=== PATIENT | female | born 1930 | race African-American/Black ===

== ENCOUNTER 2018-12-20 08:50 | Inpatient (IN) ==
--- NOTE | 2018-12-20 09:10 | ED ---
HPI General Chief complaint: Stroke Alert Stated complaint: Stroke Alert Time Seen by Provider: 12/20/18 09:02 History of Present Illness HPI Narrative: This is an 88-year-old female brought in emergently under a stroke alert. She is a skilled nursing patient with dementia who is bedbound but usually alert and conversant according to paramedics. They tell me that she was last seen normal yesterday evening before bed. They report that staff from the skilled nursing came in at 8 AM to check on her and found her very altered. Patient cannot provide any history or review of systems. This is due to significant altered mental status. At this time she is nonverbal. Exact symptom onset time is unclear as it occurred during the night. Related Data Home Medications Medication Instructions Recorded Confirmed amlodipine 5 mg PO DAILY 12/20/18 12/20/18 atorvastatin [Lipitor] 10 mg PO HS 12/20/18 12/20/18 atropine [Isopto Atropine] 1 drp LEFT EYE DAILY 12/20/18 12/20/18 carvedilol [Coreg] 6.25 mg PO BID 12/20/18 12/20/18 cilostazol 100 mg PO BID 12/20/18 12/20/18 docusate sodium [Colace] 100 mg PO BID 12/20/18 12/20/18 dorzolamide 1 drp RIGHT EYE BID 12/20/18 12/20/18 ergocalciferol (vitamin D2) 50,000 unit PO QWEEK 12/20/18 12/20/18 [Vitamin D2] furosemide [Lasix] 20 mg PO DAILY 12/20/18 12/20/18 gabapentin 200 mg PO TID 12/20/18 12/20/18 memantine [Namenda] 5 mg PO DAILY 12/20/18 12/20/18 tramadol 50 mg PO Q12HR PRN 12/20/18 12/20/18 tramadol 50 mg PO Q6H PRN 12/20/18 12/20/18 Allergies Allergy/AdvReac Type Severity Reaction Status Date / Time codeine Allergy Agitation Verified 12/20/18 09:23 Penicillins Allergy Agitation Verified 12/20/18 09:23 Review of Systems ROS Unobtainable ROS Unobtainable: unobtainable due to mental status PMFSH Medical History Medical History Degenerative disk disease (Acute) Glaucoma (Acute) HTN (hypertension) (Acute) Hyperlipemia (Acute) Hyperlipemia (Acute) Social History Social History Substance History: No History of Abuse Second Hand Smoke Exposure: No Smoking Status: Former smoker Tobacco Type: Cigarettes How Often Do You Have a Drink Containing Alcohol: Never Recent Travel in [facility] [place] within the Last 8 Weeks: No Recent Out of Country Travel within the Last 8 Weeks: No Exam Narrative Exam Narrative: GENERAL: Well-nourished, well-developed patient who is very altered . SKIN: Focused skin assessment reveals no rash and nodules. Skin is Warm and dry. HEAD: Atraumatic. Normocephalic. EYES: Pupil on the is round and midsized. 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 No scleral icterus. No injection or drainage. ENT: No nasal bleeding or discharge. Mucous membranes pink and moist. Normal gag reflex NECK: Trachea midline. No JVD. CARDIOVASCULAR: Regular rate and rhythm. No murmur appreciated. RESPIRATORY: No accessory muscle use. Clear to auscultation. Breath sounds equal bilaterally. GASTROINTESTINAL: Abdomen soft, non-tender, nondistended. Hepatic and splenic margins not palpable. MUSCULOSKELETAL: No obvious deformities. No clubbing. No cyanosis. No edema. NEUROLOGICAL: Very obtunded. Does not follow commands. Nonverbal. Normal gag reflex. She has right-sided facial droop. It seems like her right arm is flaccid. If I pick it up it just flops down to the bed. Her left arm she will keep up. She will squeeze my fingers with her left hand. She will withdrawal both legs when I give a painful stimuli. PSYCHIATRIC: Very altered mood and affect; insight and judgment poor. Course Initial Documented Vital Signs Temperature 98.5 F 12/20/18 08:52 Pulse Rate 77 12/20/18 08:52 Respiratory Rate 18 12/20/18 08:52 Blood Pressure 167/93 H 12/20/18 08:52 Pulse Oximetry 100 12/20/18 08:52 Last Documented Vital Signs Temperature 98.5 F 12/20/18 08:52 Pulse Rate 77 12/20/18 08:52 Respiratory Rate 18 12/20/18 08:52 Blood Pressure 167/93 H 12/20/18 08:52 Pulse Oximetry 100 12/20/18 09:27 Critical Care Time Critical Care Time: Yes Total Critical Care Time: 40 Attestation: Aggregate critical care time was 40 minutes. Time to perform other separately billable procedures was not included in the critical care time. My time did not include minutes spent treating any other patients simultaneously or on activities that did not directly contribute to the patient's treatment. The services I provided to this patient were to treat and/or prevent clinically significant deterioration that could result in: Cardiopulmonary arrest, loss of airway, permanent neurologic deficit I provided critical care services requiring my management, as noted below: Chart data review, documentation time, medication orders and management, vital sign assessments/reviewing monitor data, ordering and reviewing lab tests, ordering and interpreting/reviewing x-rays and diagnostic studies, care of the patient and discussion of the patient with the admitting physicians. Medical Decision Making MDM Narrative Medical decision making narrative: 88-year-old female brought in a stroke alert. She is very altered and appears to have right-sided facial droop and flaccid right arm. She was very hypertensive but that is come down spontaneously to the 160s. She is emergently going to CT scanner. I emergently discussed the case with neurologist Dr. Shimon Garcia. Scan shows acute to subacute left-sided stroke with some pinpoint hemorrhages. There is no indication for interventional radiology. Patient will require admission. Her mental status is very poor. Given the pinpoint hemorrhages which are nonsurgical, no further blood thinners/ antiplatelet agents given. Blood pressure spiked to 225 systolic and I gave 20 mg IV labetalol. This will be watched closely. I discussed with the computer repair technician but given the DNR status and likely trending toward comfort care he recommends residents admit. I did review with the medical residents who will admit. They are going to consult palliative care. Labs are reviewed. Medical Screen Exam Complete: Yes Emergency Medical Condition: Yes Differential Diagnosis Differential Diagnosis: Hemorrhagic stroke, ischemic stroke, TIA Medical Records Medical records reviewed: Yes I reviewed the patient's medical records. Reviewed her medical information from the skilled nursing. It appears that she is DNR. She is on antiplatelet agent Lab Data Lab results reviewed: Yes I reviewed the patient's lab results. Lab results narrative: White count is 11 and hemoglobin normal Result diagrams: 12/20/18 08:55 Lab Results 12/20/18 12/20/18 12/20/18 Range/Units 08:55 08:55 08:55 WBC 11.1 H (4.0-11.0) th/mm3 RBC 4.36 (4.00-5.30) mil/mm3 Hgb 12.6 (11.6-15.3) gm/dL POC Hgb (Calc) 13.9 (11.6-15.3) g/dL Hct 38.8 (35.0-46.0) % POC Hct 41.0 (35-46.0) % MCV 88.9 (80.0-100.0) fL MCH 29.0 (27.0-34.0) pg MCHC 32.6 (32.0-36.0) % RDW 15.1 (11.6-17.2) % Plt Count 213 (150-450) th/mm3 MPV 9.5 (7.0-11.0) fL Neut % (Auto) 80.7 H (16.0-70.0) % Lymph % (Auto) 14.5 (9.0-44.0) % Dent % (Auto) 4.2 (0.0-8.0) % Eos % (Auto) 0.0 (0.0-4.0) % Baso % (Auto) 0.6 (0.0-2.0) % Neut # (Auto) 9.0 H (1.8-7.7) th/mm3 Lymph # (Auto) 1.6 (1.0-4.8) th/mm3 Dent # (Auto) 0.5 (0.0-0.9) th/mm3 Eos # (Auto) 0.0 (0.0-0.4) th/mm3 Baso # (Auto) 0.1 (0.0-0.2) th/mm3 WBC Differential . Differential Comment Auto diff final PT (9.8-11.6) sec INR Ratio APTT (23.4-31.7) sec Fibrinogen (227-377) mg/dL POC Sodium 141 (137-144) mmol/L POC Potassium 4.5 (3.6-5.0) mmol/L POC Chloride 103 (102-111) mmol/L POC BUN 23 H (5-21) mg/dL POC Creatinine 1.1 (0.6-1.3) mg/dL POC Glucose 142 H (68-110) mg/dL Total Creatine Kinase 274 H (26-192) U/L CK-MB (CK-2) 3.5 (0.5-3.6) ng/mL CK-MB (CK-2) % 1.3 (0.0-4.0) % Troponin I 0.03 (0.02-0.05) ng/mL Vitamin B12 (193-986) pg/mL TSH (0.358-3.740) uIU/mL Urine Color (Yellw/Straw) Urine Clarity (Clear) Urine pH (5.0-8.5) Ur Specific [place] (1.002-1.035) Urine Protein (Neg-Trace) mg/dL Urine Glucose (UA) (Negative) mg/dL Urine Ketones (Negative) mg/dL Urine Occult Blood (Negative) Urine Nitrate (Negative) Urine Bilirubin (Negative) Urine Urobilinogen (Less than 2) mg/dL Ur Leukocyte Esterase (Negative) Urine RBC (0-3) /hpf Urine WBC (0-5) /hpf Ur Squamous Epith Cells (0-5) /hpf Urine Bacteria (None) /hpf Urine Mucus (Occasional) /lpf Micro UA Comment Ur Microscopic Review Urine Culture Comments Urine Opiates Screen (Neg) Ur Barbiturates Screen (Neg) Ur Amphetamines Screen (Neg) U Benzodiazepines Scrn (Neg) Urine Cocaine Screen (Neg) U Cannabinoids Screen (Neg) Blood Type O Positive Antibody Screen Negative 12/20/18 12/20/18 12/20/18 Range/Units 08:55 09:48 09:48 WBC (4.0-11.0) th/mm3 RBC (4.00-5.30) mil/mm3 Hgb (11.6-15.3) gm/dL POC Hgb (Calc) (11.6-15.3) g/dL Hct (35.0-46.0) % POC Hct (35-46.0) % MCV (80.0-100.0) fL MCH (27.0-34.0) pg MCHC (32.0-36.0) % RDW (11.6-17.2) % Plt Count (150-450) th/mm3 MPV (7.0-11.0) fL Neut % (Auto) (16.0-70.0) % Lymph % (Auto) (9.0-44.0) % Dent % (Auto) (0.0-8.0) % Eos % (Auto) (0.0-4.0) % Baso % (Auto) (0.0-2.0) % Neut # (Auto) (1.8-7.7) th/mm3 Lymph # (Auto) (1.0-4.8) th/mm3 Dent # (Auto) (0.0-0.9) th/mm3 Eos # (Auto) (0.0-0.4) th/mm3 Baso # (Auto) (0.0-0.2) th/mm3 WBC Differential Differential Comment PT 10.6 (9.8-11.6) sec INR 1.0 Ratio APTT 25.7 (23.4-31.7) sec Fibrinogen 303 (227-377) mg/dL POC Sodium (137-144) mmol/L POC Potassium (3.6-5.0) mmol/L POC Chloride (102-111) mmol/L POC BUN (5-21) mg/dL POC Creatinine (0.6-1.3) mg/dL POC Glucose (68-110) mg/dL Total Creatine Kinase (26-192) U/L CK-MB (CK-2) (0.5-3.6) ng/mL CK-MB (CK-2) % (0.0-4.0) % Troponin I (0.02-0.05) ng/mL Vitamin B12 392 (193-986) pg/mL TSH 0.943 (0.358-3.740) uIU/mL Urine Color (Yellw/Straw) Urine Clarity (Clear) Urine pH (5.0-8.5) Ur Specific [place] (1.002-1.035) Urine Protein (Neg-Trace) mg/dL Urine Glucose (UA) (Negative) mg/dL Urine Ketones (Negative) mg/dL Urine Occult Blood (Negative) Urine Nitrate (Negative) Urine Bilirubin (Negative) Urine Urobilinogen (Less than 2) mg/dL Ur Leukocyte Esterase (Negative) Urine RBC (0-3) /hpf Urine WBC (0-5) /hpf Ur Squamous Epith Cells (0-5) /hpf Urine Bacteria (None) /hpf Urine Mucus (Occasional) /lpf Micro UA Comment Ur Microscopic Review Urine Culture Comments Urine Opiates Screen Neg (Neg) Ur Barbiturates Screen Neg (Neg) Ur Amphetamines Screen Neg (Neg) U Benzodiazepines Scrn Neg (Neg) Urine Cocaine Screen Neg (Neg) U Cannabinoids Screen Neg (Neg) Blood Type Antibody Screen 12/20/18 Range/Units 09:48 WBC (4.0-11.0) th/mm3 RBC (4.00-5.30) mil/mm3 Hgb (11.6-15.3) gm/dL POC Hgb (Calc) (11.6-15.3) g/dL Hct (35.0-46.0) % POC Hct (35-46.0) % MCV (80.0-100.0) fL MCH (27.0-34.0) pg MCHC (32.0-36.0) % RDW (11.6-17.2) % Plt Count (150-450) th/mm3 MPV (7.0-11.0) fL Neut % (Auto) (16.0-70.0) % Lymph % (Auto) (9.0-44.0) % Dent % (Auto) (0.0-8.0) % Eos % (Auto) (0.0-4.0) % Baso % (Auto) (0.0-2.0) % Neut # (Auto) (1.8-7.7) th/mm3 Lymph # (Auto) (1.0-4.8) th/mm3 Dent # (Auto) (0.0-0.9) th/mm3 Eos # (Auto) (0.0-0.4) th/mm3 Baso # (Auto) (0.0-0.2) th/mm3 WBC Differential Differential Comment PT (9.8-11.6) sec INR Ratio APTT (23.4-31.7) sec Fibrinogen (227-377) mg/dL POC Sodium (137-144) mmol/L POC Potassium (3.6-5.0) mmol/L POC Chloride (102-111) mmol/L POC BUN (5-21) mg/dL POC Creatinine (0.6-1.3) mg/dL POC Glucose (68-110) mg/dL Total Creatine Kinase (26-192) U/L CK-MB (CK-2) (0.5-3.6) ng/mL CK-MB (CK-2) % (0.0-4.0) % Troponin I (0.02-0.05) ng/mL Vitamin B12 (193-986) pg/mL TSH (0.358-3.740) uIU/mL Urine Color Straw (Yellw/Straw) Urine Clarity Hazy H (Clear) Urine pH 8.0 (5.0-8.5) Ur Specific [place] 1.010 (1.002-1.035) Urine Protein 100 H (Neg-Trace) mg/dL Urine Glucose (UA) Negative (Negative) mg/dL Urine Ketones Negative (Negative) mg/dL Urine Occult Blood Moderate H (Negative) Urine Nitrate Negative (Negative) Urine Bilirubin Negative (Negative) Urine Urobilinogen Less than 2 (Less than 2) mg/dL Ur Leukocyte Esterase Negative (Negative) Urine RBC 10 H (0-3) /hpf Urine WBC 3 (0-5) /hpf Ur Squamous Epith Cells 5 (0-5) /hpf Urine Bacteria Rare H (None) /hpf Urine Mucus Few H (Occasional) /lpf Micro UA Comment Cath-culture not ind Ur Microscopic Review Not Reportable Urine Culture Comments Cath-cult not ind Urine Opiates Screen (Neg) Ur Barbiturates Screen (Neg) Ur Amphetamines Screen (Neg) U Benzodiazepines Scrn (Neg) Urine Cocaine Screen (Neg) U Cannabinoids Screen (Neg) Blood Type Antibody Screen Imaging Data Attestation: I personally reviewed and interpreted this imaging study as follows : My impression: CT shows acute subacute infarct with pinpoint hemorrhages Radiologist's impression: Head CT 12/20/18 09:01 CONCLUSION: Acute to subacute area of infarction involving the left middle cerebral artery territory with suspected small punctate areas of hemorrhage. Report was called by Dr. Hsieh to at 9:20 AM.. ECG Data EKG Prior to Arrival: No Attestation: I personally reviewed and interpreted this ECG as follows: Prior ECG tracings: not available for review Discharge Plan Discharge Disposition Patient Disposition: ED Admit(ED Internal Use Only) Discharge Details Diagnosis: Acute ischemic stroke Physicians Team ED Provider: Will Wells Primary Care Provider: UNKNOWN, Other Providers: Shimon Garcia Rxs /Orders / Referrals /Forms Prescriptions: No Action amlodipine 5 mg Tablet 5 mg PO DAILY RF: 0 cilostazol 100 mg Tablet 100 mg PO BID RF: 0 carvedilol [Coreg] 6.25 mg Tablet 6.25 mg PO BID RF: 0 atorvastatin [Lipitor] 10 mg Tablet 10 mg PO HS RF: 0 tramadol 50 mg Tablet 50 mg PO Q6H PRN (Reason: Pain, Severe) RF: 0 tramadol 50 mg Tablet 50 mg PO Q12HR PRN (Reason: Pain, Mild) RF: 0 docusate sodium [Colace] 100 mg Capsule 100 mg PO BID RF: 0 furosemide [Lasix] 20 mg Tablet 20 mg PO DAILY RF: 0 gabapentin 100 mg Capsule 200 mg PO TID RF: 0 ergocalciferol (vitamin D2) [Vitamin D2] 50,000 unit Capsule 50,000 unit PO QWEEK RF: 0 atropine [Isopto Atropine] 1 % Drops 1 drp LEFT EYE DAILY RF: 0 dorzolamide 2 % Drops 1 drp RIGHT EYE BID RF: 0 memantine [Namenda] 5 mg Tablet 5 mg PO DAILY RF: 0 Status ED Status: With Doctor
[2018-12-20 09:21] LABS: Baso # (Auto) 0.1 th/mm3 (0.0-0.2); Baso % (Auto) 0.6 % (0.0-2.0); Hematocrit 38.8 % (35.0-46.0); Hemoglobin 12.6 gm/dL (11.6-15.3); Lymph # (Auto) 1.6 th/mm3 (1.0-4.8); Lymph % (Auto) 14.5 % (9.0-44.0); Mean Corpuscular HGB Conc 32.6 % (32.0-36.0); Mean Corpuscular Volume 88.9 fL (80.0-100.0); Mean Platelet Volume 9.5 fL (7.0-11.0); Mono # (Auto) 0.5 th/mm3 (0.0-0.9); Mono % (Auto) 4.2 % (0.0-8.0); Neut % (Auto) 80.7 % (16.0-70.0); Platelet Count 213 th/mm3 (150-450); Red Blood Count 4.36 mil/mm3 (4.00-5.30); Red Cell Distribution Width 15.1 % (11.6-17.2); White Blood Count 11.1 th/mm3 (4.0-11.0)
--- NOTE | 2018-12-20 09:24 | CT ---
EXAM DATE: 12/20/2018 9:15 AM EST AGE/SEX: 88 years / Female INDICATIONS: Stroke alert, right sided facial droop and right extremity weakness CLINICAL DATA: This is the patient's initial encounter. Patient reports that signs and symptoms have been present for 1 day and indicates a pain score of Nonresponsive. MEDICAL/SURGICAL HISTORY: Non-responsive. Non-responsive. RADIATION DOSE: 66.34 CTDI (mGy) COMPARISON: No prior exams available for comparison. TECHNIQUE: CT of the head without contrast. Using automated exposure control and adjustment of the mA and/or kV according to patient size, radiation dose was kept as low as reasonably achievable to ob tain optimal diagnostic quality images. DICOM format image data is available electronically for revi ew and comparison. FINDINGS: Cerebrum: There is low density seen in the left frontal and parietal lobes. There is low density in the left basal ganglia. This is likely from acute to subacute infarction in the left MCA territory. T here are several small high density foci seen related to either underlying calcifications are tiny ar eas of hemorrhage. A large branden hemorrhage is not seen. There is effacement of the sulci in the left cerebral hemisphere. Significant midline shift is not seen at this time. The basal cisterns are open . There is low density in the cerebral white matter likely from pre-existing small ischemic change i n the white matter. Posterior Fossa: The cerebellum and brainstem are intact. The 4th ventricle is midline. The cerebe llopontine angle is unremarkable. Extracranial: The visualized portion of the orbits is intact. There is a deformity and surgical mate rial seen at the left globe. Skull: The calvaria is intact. No evidence of skull fracture. CONCLUSION: Acute to subacute area of infarction involving the left middle cerebral artery territory with suspect ed small punctate areas of hemorrhage. Report was called by Dr. Hsieh to at 9:20 AM.. Electronically signed by: Daniele Hsieh MD Board Certified Radiologist 12/20/2018 9:23 AM EST
[2018-12-20 09:44] LABS: Troponin I 0.03 ng/mL (0.02-0.05)
[2018-12-20] MEDS: Aspirin 300 MG Supp RECTAL SCH (09:51)
[2018-12-20] MEDS: Sod Chloride 0.9% Inj 1,000 ML IV.CONT SCH (09:52)
[2018-12-20 09:56] LABS: CKMB Percent 1.3 % (0.0-4.0); Creatine Kinase MB 3.5 ng/mL (0.5-3.6)
--- NOTE | 2018-12-20 10:03 | MB ---
cc: Shimon Garcia MD DATE: 12/20/2018 HISTORY OF PRESENT ILLNESS: An 88-year-old woman who has not been seen really at this hospital before, who comes in with Stroke alert. She is noted to be usually demented and bedbound, but this morning noted to be weak on the right side. Last seen last evening about 5 p.m. when she went to bed. Status post stroke alert was called within 24 hours. Unfortunately, review of systems, family history, social history, unable to obtain any of that information. PHYSICAL EXAMINATION: VITAL SIGNS: On exam, 173/106 sinus rhythm on tele. NECK: There are no carotid bruits. HEART: Regular rhythm. I did not detect a murmur. 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 Right eye is deviated over to the left. She is not following any commands. It sounds like she is probably aphasic. She is flaccid on the right upper and lower extremity. Left upper extremity, she can hold above the bed. left lower extremity, she did move a little bit at the knee. Toes were equivocal bilaterally. Hard to tell for pinprick. NIH stroke scale is 15. Labs are pending. MEDICATIONS: She is on Lasix, some eyedrops, memantine 5 mg once a day, carvedilol, amlodipine, atorvastatin, cilostazol, Colace, gabapentin 200 t.i.d., tramadol. PAST MEDICAL HISTORY: From the halfway, hypertension, glaucoma, hypercholesterolemia, neuropathy, constipation, dementia, osteoarthritis, cervical disk disorder, repeated falls, vitamin D deficiency. It says she was on antiplatelet drug, although I do not see one on here. DIAGNOSTIC DATA: On 12/07/2018, she had a normal CBC. Vitamin D was low at 9.2. PTH was 178. Basic metabolic profile, creatinine 1.43. LFTs were normal. GFR 35. TSH and phosphorus normal. Hemoglobin A1c 6.8. Diagnostic studies here, glucose 139. Creatinine 1.1. CT scan shows a large evolving left MCA infarct. IMPRESSION AND PLAN: Large stroke certainly over several hours old. Not going to be a TPA candidate or any clot extraction candidate. It is over 2/3 of the size of the middle cerebral artery territory. We will check an MRI and MRA on her; but at this point, considering her dementia, consideration for comfort measures may be entertained. We will have to see what the family would want. For now, just give her rectal aspirin. MD HENRI Washburn/haroldo , 09:18 AM , 09:36 AM
[2018-12-20 10:23] LABS: Bacteria,Urine Rare /hpf; Bilirubin,Urine Negative (Negative); Clarity,Urine Hazy (Clear); Color,Urine Straw (Yellw/Straw); Glucose,Urine (UA) Negative (Negative); Leukocyte Esterase,Urine Negative (Negative); Mucus,Urine Few /lpf (Occasional); Nitrite,Urine Negative (Negative); Squamous Epithelial Cell,Urine 5 /hpf (0-5)
[2018-12-20 10:25] LABS: Amphetamine Screen,Urine Neg (Neg); Barbiturate Screen,Urine Neg (Neg); Cannabinoid Screen,Urine Neg (Neg); Cocaine Screen,Urine Neg (Neg)
[2018-12-20 10:26] LABS: Opiate Screen,Urine Neg (Neg)
[2018-12-20 10:35] LABS: Activated Partial Thrombo Time 25.7 sec (23.4-31.7); Prothrombin Time 10.6 sec (9.8-11.6)
[2018-12-20 10:52] LABS: Thyroid Stimulating Hormone 0.943 uIU/mL (0.358-3.740)
[2018-12-20] MEDS ORDERED: Labetalol HCl Inj 100 MG/20 ML Vial IV.PUSH ONE (11:19)
[2018-12-20] MEDS ORDERED: Labetalol HCl Inj 20 MG/4 ML Vial IV.PUSH ONE (11:45)
--- NOTE | 2018-12-20 11:50 | P.HPFP ---
History of Present Illness Primary Care Physician: UNKNOWN <NubiaWayne K - 12/21/18 07:43> UNKNOWN <Natalie Dodson - 12/20/18 11:50> Chief Complaint: right sided weakness, altered mental status <Natalie Dodson - 12/20/18 11:50> History of Present Illness: 88-year-old with history of dementia, hypertension and hypercholesterolemia presents the ED for altered mental status and right-sided weakness that started this morning per nursing of staff. Patient is currently nonverbal, unresponsive to voice, withdraws from sternal rub and is unable to follow commands. History obtained from daughter who is at bedside. Patient's daughter states that she was last seen normal yesterday afternoon at lunch, where she was conversing normally and feeding herself. She normally walks with a walker. She has been groaning and will move her left side spontaneously, however, patient has not been verbal, or responded to her daughter's voice yet today. At baseline, patient is oriented to self. Denies any recent illnesses. Denies history of clots in the past, though patient is on a blood thinner currently, though patient's daughter is unsure the name of this medication. She does have a history of loop recorder placement for a heart murmur, however no arrhythmia has been found. Discussed possible treatment options with daughter, based on neurologists recommendations. Due to patient's current mental status and history of dementia , offered palliative care consult to discuss treatment options, care goals and code status for the patient. Per daughter, patient signed community DNR paperwork on 12/19, however, this has not yet been signed by a physician. Daughter is hesitant to confirm DNR status at this point in time stating that her mother "does not want any intervention that would cause prolonged, or terminal pain ". After reassurance that patient's CODE STATUS could be changed today time per her request, daughter states that she would like her mother to remain DNI, but is agreeable to chest compressions and ACLS medications if necessary. Daughter also states that she is unsure if she wants an extended workup, including blood work, if it will not change the medical management, and would like to wait for the MRI/MRA and talk to palliative care prior to further investigation of the cause of the stroke. Past medical history: Hypertension Dementia Glaucoma Hypercholesterolemia Chronic pain Constipation Surgical history: Knee replacement Loop recorder placement Social history: Resides in a residential Former smoker Daughter denies alcohol or illicit drug use. <Natalie Dodson 12/20/18 21:38> - Diagnosis (1) Stroke due to embolism of left middle cerebral artery (2) Altered mental status (3) Right sided weakness (4) HTN (hypertension) (5) Dementia (6) Nutrition, metabolism, and development symptoms (7) DVT prophylaxis <Wayne Delacruz 12/21/18 07:43> (1) Stroke due to embolism of left middle cerebral artery (2) Altered mental status (3) Right sided weakness (4) HTN (hypertension) (5) Dementia (6) Nutrition, metabolism, and development symptoms (7) DVT prophylaxis <Natalie Dodson 12/20/18 21:22> Inpatient Certification: I certify that the inpatient services were ordered in accordance with Medicare regulations governing the order. This includes certification that hospital inpatient services are reasonable and necessary and in the case of services not specified as inpatient-only under 42 CFR 419.22(n), that they are appropriately provided as inpatient services in accordance to with the 2-midnight benchmark under 43 CFR 412.3(e) <Wayne Delacruz 12/21/18 07:43> PMFSH - History History Provided By: Family Member <Natalie Dodson 12/20/18 21:38> - Medical / Surgical Hx Neg / Unobtainable Surgical History: Unable to Obtain <Natalie Dodson 12/20/18 21:38> - Medical History Medical History: Medical History (Last Reviewed 12/20/18 @ 13:56 by Amalia Snow Subscription Clerk, PHYSICIAN REPRESENTATIVE) Degenerative disk disease Glaucoma HTN (hypertension) Hyperlipemia Hyperlipemia <Wayne Delacruz 12/21/18 07:43> Medical History (Last Reviewed 12/20/18 @ 13:56 by Amalia Snow Subscription Clerk, PHYSICIAN REPRESENTATIVE) Degenerative disk disease Glaucoma HTN (hypertension) Hyperlipemia Hyperlipemia <Natalie Dodson 12/20/18 19:49> - Tobacco History Second Hand Smoke Exposure: No <Natalie Dodson 12/20/18 11:50> Tobacco Use In Past 30 Days: No <Natalie Dodson 12/20/18 11:50> Smoking Status: Former smoker <[place] [id number] 12/20/18 11:50> Tobacco Type: Cigarettes <[place] [id number] B 12/20/18 11:50> - Alcohol History How Often Do You Have a Drink Containing Alcohol: Never <Caitie Natalie Noel 12/20/18 11:50> - Substance Use History Substance History: No History of Abuse <[place] [id number] 12/20/18 11:50> - Travel History Recent Travel in the [facility] Within the Last 8 Weeks: No [facility] Recent Travel Out of the Country Within the Last 8 Weeks: No <[facility] 12/20/18 11:50> - Immunization History Tetanus Immunization: <5 Years <[place] [id number] 12/20/18 11:50> Medications and Allergies Allergies Allergy/AdvReac Type Severity Reaction Status Date / Time codeine Allergy Agitation Verified 12/20/18 09:23 Penicillins Allergy Agitation Verified 12/20/18 09:23 <Wayne Delacruz - 12/21/18 07:43> Home Medications Medication Instructions Recorded Confirmed Type amlodipine 5 mg PO DAILY 12/20/18 12/20/18 History atorvastatin [Lipitor] 10 mg PO HS 12/20/18 12/20/18 History atropine [Isopto Atropine] 1 drp LEFT EYE DAILY 12/20/18 12/20/18 History carvedilol [Coreg] 6.25 mg PO BID 12/20/18 12/20/18 History cilostazol 100 mg PO BID 12/20/18 12/20/18 History docusate sodium [Colace] 100 mg PO BID 12/20/18 12/20/18 History dorzolamide 1 drp RIGHT EYE BID 12/20/18 12/20/18 History ergocalciferol (vitamin D2) 50,000 unit PO QWEEK 12/20/18 12/20/18 History [Vitamin D2] furosemide [Lasix] 20 mg PO DAILY 12/20/18 12/20/18 History gabapentin 200 mg PO TID 12/20/18 12/20/18 History memantine [Namenda] 5 mg PO DAILY 12/20/18 12/20/18 History tramadol 50 mg PO Q12HR PRN 12/20/18 12/20/18 History tramadol 50 mg PO Q6H PRN 12/20/18 12/20/18 History <Wayne Delacruz - 12/21/18 07:43> Active Medications: Active Medications Acetaminophen (Tylenol) 650 mg PO Q4H PRN PRN Reason: Temp > 100.4 Aspirin (Aspirin Supp) 300 mg RECTAL DAILY [facility] Last Admin: 12/20/18 09:51 Dose: Not Given Sodium Chloride (Ns Inj) 1,000 mls @ 70 mls/hr IV.CONT .[id number] [facility] Last Admin: 12/21/18 03:06 Dose: 70 mls/hr Acetaminophen (Ofirmev Inj) 650 mg in 65 mls @ 400 mls/hr IV.SIG Q6H PRN PRN Reason: Fever > 100.4F Last Infusion: 12/20/18 18:24 Dose: Infused Ondansetron HCl (Zofran Inj) 4 mg IV.PUSH Q6H PRN PRN Reason: NAUSEA OR VOMITING Senna/Docusate Sodium (Janae-Colace) 1 tab PO BID PRN PRN Reason: CONSTIPATION Sodium Chloride (Ns Flush) 2 ml IV.FLUSH BID [facility] Last Admin: 12/20/18 20:24 Dose: Not Given Sodium Chloride (Ns Flush) 2 ml IV.FLUSH UNSCH PRN PRN Reason: FLUSH AFTER USING IV ACCESS <Wayne Delacruz - 12/21/18 07:43> Active Medications Aspirin (Aspirin Supp) 300 mg RECTAL DAILY [facility] Last Admin: 12/20/18 09:51 Dose: Not Given Sodium Chloride (Ns Inj) 1,000 mls @ 70 mls/hr IV.CONT .[id number] [facility] Last Admin: 12/20/18 09:52 Dose: 70 mls/hr <Natalie Dodson - 12/20/18 11:50> Exam Vital signs: Vital Signs 12/20/18 08:52 12/20/18 09:00 12/20/18 09:27 Temperature 98.5 F Pulse Rate 77 Respiratory Rate 18 Blood Pressure 167/93 H Pulse Oximetry 100 100 100 12/20/18 12:35 12/20/18 15:46 12/20/18 16:00 Temperature 101.7 F H 101.5 F H Pulse Rate 100 H 95 H Respiratory Rate 18 16 Blood Pressure 162/83 H 195/88 H Pulse Oximetry 99 12/20/18 18:46 12/20/18 19:50 12/20/18 20:00 Temperature 101.9 F H 101.7 F H Pulse Rate 88 Respiratory Rate 20 Blood Pressure 161/80 H Pulse Oximetry 100 99 12/20/18 23:28 12/21/18 00:00 12/21/18 04:00 Temperature 101.2 F H 100.8 F H Pulse Rate 76 66 Respiratory Rate 16 16 Blood Pressure 169/77 H 169/74 H Pulse Oximetry 99 99 12/21/18 04:55 Temperature 99.2 F Pulse Rate Respiratory Rate Blood Pressure Pulse Oximetry Intake & Output 12/20/18 12/21/18 12/21/18 18:59 06:59 18:59 Intake Total 465 / 465 665 / 665 Output Total 100 / 100 500 / 500 Balance 365 / 365 165 / 165 Weight 94.3 kg Intake: IV 465 / 465 665 / 665 NS Inj 1,000 ML @ 70 mls/hr IV. 400 / 400 600 / 600 CONT .[id number] [facility] Rx#:[id number] Ofirmev Inj 650 mg In 65 ml @ 65 / 65 65 / 65 400 mls/hr IV.SIG ONCE ONE Rx#: [id number] Output: Urine 500 / 500 Urine Amount (Catheter) 100 / 100 Female External 100 / 100 Other: # Voids 3 # Incontinent Voids 1 Weight On Admission 94.3 kg <Wayne Delacruz - 12/21/18 07:43> Vital Signs 12/20/18 08:52 12/20/18 09:00 12/20/18 09:27 Temperature 98.5 F Pulse Rate 77 Respiratory Rate 18 Blood Pressure 167/93 H Pulse Oximetry 100 100 100 Intake & Output 12/19/18 12/20/18 12/20/18 18:59 06:59 18:59 Weight 94.3 kg <Natalie Dodson - 12/20/18 11:50> Narrative: GENERAL: 88-year-old, well nourished, well developed female laying down in bed. In no acute distress. SKIN: Warm and dry. HEAD: Atraumatic. Normocephalic. EYES: EMOI. PERRLA. No scleral icterus. No injection or drainage. ENT: No nasal bleeding or discharge. Mucous membranes pink and moist. Airway patent. Poor dentition. CARDIOVASCULAR: Regular rate and rhythm. No murmur. RESPIRATORY: No accessory muscle use. Clear to auscultation with equal breath sounds. No crackles, wheeze, rales or rhonchi. GASTROINTESTINAL: Abdomen soft, non-tender, nondistended. Hepatic and splenic margins not palpable. MUSCULOSKELETAL: Extremities without clubbing, cyanosis, or edema. No obvious deformities. Unable to determine calf tenderness due to patient's mental status. Flaccid arm and leg on the right. NEUROLOGICAL: Unresponsive to voice. Mild withdrawal to sternal rub. Kept eyes closed throughout the entire exam. Intermittent groaning throughout exam. Unable to follow commands, including opening her eyes, or squeezing fingers. Moves left foot spontaneously. Facial droop on right. <Natalie Dodson - 12/20/18 19:54> Results - Labs Result diagrams: 12/20/18 08:55 <Wayne Delacruz - 12/21/18 07:43> Abnormal lab results 12/20/18 12/20/18 12/20/18 Range/Units 08:55 08:55 09:48 WBC 11.1 H (4.0-11.0) th/mm3 Neut % (Auto) 80.7 H (16.0-70.0) % Neut # (Auto) 9.0 H (1.8-7.7) th/mm3 POC BUN 23 H (5-21) mg/dL POC Glucose 142 H (68-110) mg/dL Total Creatine Kinase 274 H (26-192) U/L Urine Clarity Hazy H (Clear) Urine Protein 100 H (Neg-Trace) mg/dL Urine Occult Blood Moderate H (Negative) Urine RBC 10 H (0-3) /hpf Urine Bacteria Rare H (None) /hpf Urine Mucus Few H (Occasional) /lpf Short CBC 12/20/18 Range/Units 08:55 WBC 11.1 H (4.0-11.0) th/mm3 Hgb 12.6 (11.6-15.3) gm/dL Hct 38.8 (35.0-46.0) % Plt Count 213 (150-450) th/mm3 Cardiac Enzymes 12/20/18 Range/Units 08:55 Total Creatine Kinase 274 H (26-192) U/L CK-MB (CK-2) 3.5 (0.5-3.6) ng/mL Troponin I 0.03 (0.02-0.05) ng/mL Urine 12/20/18 Range/Units 09:48 Urine Color Straw (Yellw/Straw) Urine Clarity Hazy H (Clear) Urine pH 8.0 (5.0-8.5) Ur Specific Max 1.010 (1.002-1.035) Urine Protein 100 H (Neg-Trace) mg/dL Urine Glucose (UA) Negative (Negative) mg/dL <Wayne Delacruz - 12/21/18 07:43> Abnormal lab results 12/20/18 12/20/18 12/20/18 Range/Units 08:55 08:55 09:48 WBC 11.1 H (4.0-11.0) th/mm3 Neut % (Auto) 80.7 H (16.0-70.0) % Neut # (Auto) 9.0 H (1.8-7.7) th/mm3 POC BUN 23 H (5-21) mg/dL POC Glucose 142 H (68-110) mg/dL Total Creatine Kinase 274 H (26-192) U/L Urine Clarity Hazy H (Clear) Urine Protein 100 H (Neg-Trace) mg/dL Urine Occult Blood Moderate H (Negative) Urine RBC 10 H (0-3) /hpf Urine Bacteria Rare H (None) /hpf Urine Mucus Few H (Occasional) /lpf Short CBC 12/20/18 Range/Units 08:55 WBC 11.1 H (4.0-11.0) th/mm3 Hgb 12.6 (11.6-15.3) gm/dL Hct 38.8 (35.0-46.0) % Plt Count 213 (150-450) th/mm3 Cardiac Enzymes 12/20/18 Range/Units 08:55 Total Creatine Kinase 274 H (26-192) U/L CK-MB (CK-2) 3.5 (0.5-3.6) ng/mL Troponin I 0.03 (0.02-0.05) ng/mL Urine 12/20/18 Range/Units 09:48 Urine Color Straw (Yellw/Straw) Urine Clarity Hazy H (Clear) Urine pH 8.0 (5.0-8.5) Ur Specific Max 1.010 (1.002-1.035) Urine Protein 100 H (Neg-Trace) mg/dL Urine Glucose (UA) Negative (Negative) mg/dL <Philippe NoelNatalie B - 12/20/18 11:50> - Imaging Impressions Chest X-Ray 12/20/18 00:00 CONCLUSION: 1. Elevation right hemidiaphragm. 2. No infiltrate. Neck MRA 12/20/18 00:00 CONCLUSION: 1. Negative for hemodynamically significant stenosis. Examination is not adequate to exclude a source of emboli from the left carotid. Percent stenosis is calculated using the diameter of the stenotic region over the diameter of the normal distal internal carotid artery Head CT 12/20/18 09:01 CONCLUSION: Acute to subacute area of infarction involving the left middle cerebral artery territory with suspected small punctate areas of hemorrhage. Report was called by Dr. Hsieh to at 9:20 AM.. Head MRI 12/20/18 09:16 CONCLUSION: 1. MRI consistent with acute ischemic event involving a large segment of the left middle cerebral artery territory extending from the orbital frontal region to the high left parotid region with minimal hemorrhage. 2. There is currently minimal mass effect associated with this 3. Right hemisphere is unremarkable Head MRA 12/20/18 09:17 CONCLUSION: 1. Atherosclerotic vascular disease as above with absent anterior branches M2 left middle cerebral artery <Wayne Delacruz - 12/21/18 07:43> Impressions Head CT 12/20/18 09:01 CONCLUSION: Acute to subacute area of infarction involving the left middle cerebral artery territory with suspected small punctate areas of hemorrhage. Report was called by Dr. Hsieh to at 9:20 AM.. <Natalie Dodson 12/20/18 11:50> Caprini VTE Risk Assessment Caprini VTE Risk Assessment: Moderate/High Risk (score >= 2) <Natalie Dodson 12/20/18 11:50> Caprini Risk Assessment Model: Point Value = 1 Point Value = 2 Point Value = 3 Point Value = 5 Age 41-60 Minor surgery BMI > 25 kg/m2 Swollen legs Varicose veins or History of unexplained or recurrent spontaneous Oral contraceptives or hormone replacement Sepsis (< 1 month) Serious lung disease, including pneumonia (< 1 month) Abnormal pulmonary function Acute myocardial infarction Congestive heart failure (< 1 month) History of inflammatory bowel disease Medical patient at bed rest Age 61-74 Arthroscopic surgery Major open surgery (> 45 min) Laparoscopic surgery (> 45 min) Malignancy Confined to bed (> 72 hours) Immobilizing plaster cast Central venous access Age >= 75 History of VTE Family history of VTE Factor V Leiden Prothrombin [id number] Lupus anticoagulant Anticardiolipin antibodies Elevated serum homocysteine Heparin-induced thrombocytopenia Other congenital or acquired thrombophilia Stroke (< 1 month) Elective arthroplasty Hip, pelvis, or leg fracture Acute spinal cord injury (< 1 month) <Wayne Delacruz - 12/21/18 07:43> Point Value = 1 Point Value = 2 Point Value = 3 Point Value = 5 Age 41-60 Minor surgery BMI > 25 kg/m2 Swollen legs Varicose veins or History of unexplained or recurrent spontaneous Oral contraceptives or hormone replacement Sepsis (< 1 month) Serious lung disease, including pneumonia (< 1 month) Abnormal pulmonary function Acute myocardial infarction Congestive heart failure (< 1 month) History of inflammatory bowel disease Medical patient at bed rest Age 61-74 Arthroscopic surgery Major open surgery (> 45 min) Laparoscopic surgery (> 45 min) Malignancy Confined to bed (> 72 hours) Immobilizing plaster cast Central venous access Age >= 75 History of VTE Family history of VTE Factor V Leiden Prothrombin [id number] Lupus anticoagulant Anticardiolipin antibodies Elevated serum homocysteine Heparin-induced thrombocytopenia Other congenital or acquired thrombophilia Stroke (< 1 month) Elective arthroplasty Hip, pelvis, or leg fracture Acute spinal cord injury (< 1 month) <Natalie Dodson B - 12/20/18 11:50> Prophylaxis Regimen: Total Risk Factor Score Risk Level Prophylaxis Regimen 0-1 Low Early ambulation 2 Moderate Order ONE of the following: *Sequential Compression Device (SCD) *Heparin 5000 units SQ BID 3-4 Higher Order ONE of the following medications: *Heparin 5000 units SQ TID *Enoxaparin/Lovenox 40 mg SQ daily (WT < 150 kg, CrCl > 30 mL/min) *Enoxaparin/Lovenox 30 mg SQ daily (WT < 150 kg, CrCl > 10-29 mL/min) *Enoxaparin/Lovenox 30 mg SQ BID (WT < 150 kg, CrCl > 30 mL/min) AND/OR *Sequential Compression Device (SCD) 5 or more Highest Order ONE of the following medications: *Heparin 5000 units SQ TID (Preferred with Epidurals) *Enoxaparin/Lovenox 40 mg SQ daily (WT < 150 kg, CrCl > 30 mL/min) *Enoxaparin/Lovenox 30 mg SQ daily (WT < 150 kg, CrCl > 10-29 mL/min) *Enoxaparin/Lovenox 30 mg SQ BID (WT < 150 kg, CrCl > 30 mL/min) AND *Sequential Compression Device (SCD) <Wayne Delacruz - 12/21/18 07:43> Total Risk Factor Score Risk Level Prophylaxis Regimen 0-1 Low Early ambulation 2 Moderate Order ONE of the following: *Sequential Compression Device (SCD) *Heparin 5000 units SQ BID 3-4 Higher Order ONE of the following medications: *Heparin 5000 units SQ TID *Enoxaparin/Lovenox 40 mg SQ daily (WT < 150 kg, CrCl > 30 mL/min) *Enoxaparin/Lovenox 30 mg SQ daily (WT < 150 kg, CrCl > 10-29 mL/min) *Enoxaparin/Lovenox 30 mg SQ BID (WT < 150 kg, CrCl > 30 mL/min) AND/OR *Sequential Compression Device (SCD) 5 or more Highest Order ONE of the following medications: *Heparin 5000 units SQ TID (Preferred with Epidurals) *Enoxaparin/Lovenox 40 mg SQ daily (WT < 150 kg, CrCl > 30 mL/min) *Enoxaparin/Lovenox 30 mg SQ daily (WT < 150 kg, CrCl > 10-29 mL/min) *Enoxaparin/Lovenox 30 mg SQ BID (WT < 150 kg, CrCl > 30 mL/min) AND *Sequential Compression Device (SCD) <Natalie Dodson Danielle - 12/20/18 11:50> Assessment and Plan - Assessment (1) Stroke due to embolism of left middle cerebral artery Code(s): I63.412 - Cerebral infarction due to embolism of left middle cerebral artery Status: Acute (2) Altered mental status Code(s): R41.82 - Altered mental status, unspecified Status: Acute (3) Right sided weakness Code(s): R53.1 - Weakness Status: Acute (4) HTN (hypertension) Code(s): I10 - Essential (primary) hypertension Status: Acute (5) Dementia Code(s): F03.90 - Unspecified dementia without behavioral disturbance Status: Acute (6) Nutrition, metabolism, and development symptoms Code(s): R63.8 - Other symptoms and signs concerning food and fluid intake Status: Acute (7) DVT prophylaxis Status: Acute <Wayne Delacruz Faustino - 12/21/18 07:43> (1) Stroke due to embolism of left middle cerebral artery Code(s): I63.412 - Cerebral infarction due to embolism of left middle cerebral artery Status: Acute (2) Altered mental status Code(s): R41.82 - Altered mental status, unspecified Status: Acute (3) Right sided weakness Code(s): R53.1 - Weakness Status: Acute (4) HTN (hypertension) Code(s): I10 - Essential (primary) hypertension Status: Acute (5) Dementia Code(s): F03.90 - Unspecified dementia without behavioral disturbance Status: Acute (6) Nutrition, metabolism, and development symptoms Code(s): R63.8 - Other symptoms and signs concerning food and fluid intake Status: Acute (7) DVT prophylaxis Status: Acute <Philippe Natalie Noel Danielle - 12/20/18 21:22> - Assessment and Plan Subacute, evolving CVA of left MCA Altered mental status, right-sided weakness Patient unresponsive and unable to follow commands, change from baseline. -CBC, CMP, PT/INR, UA WNL. UDS negative. -CT head showed "acute to subacute area of infarction involving the left middle cerebral artery territory with suspected small punctate areas of hemorrhage." -MRI/MRA brain without contrast ordered -Keep on bedrest -Fall precautions -HOB flat for 12 hours -Neurochecks every 4 while patient is awake for 24 hours. Resident team and neurologist to be notified for any neurologic changes. -Allow for permissive hypertension with systolic blood pressure up to 200 and diastolic blood pressure up to 100. -Speech therapy consulted for swallow evaluation, keep n.p.o. for now and hold p.o. medications until cleared by speech. -LDSS protocol Per daughter, to hold off on further blood work including lipid panel, A1c, LFTs , and echo cardiogram until MRI/MRA of brain completed and she has discussed this workup with palliative care. -Palliative care consulted Neurology consulted, Per consult note: "Large stroke certainly over several hours old. Not going to be a TPA or any clot extraction candidate. It is over 2/3 of the size of the middle cerebral artery territory. We will check an MRI and MRA on her; but at this point, considering her dementia , consideration for comfort measures may be entertained. We will have to see what the family would want. For now, give rectal aspirin." Hypertension On amlodipine, carvedilol, and furosemide at home. Did not receive medications today. Blood pressure up to 230/110 initially, now 160/100s following labetolol 20 mg IV x1, given in ED. -Will allow for permissive hypertension. Nurses contact resident team if blood pressure greater than 200/100 Dementia On memantine at home -Hold p.o. medications Glaucoma -Receives atropine eyedrop and dorzolamide eyedrops at home Hypercholesterolemia On atorvastatin at home -Hold p.o. medications Neuropathy On gabapentin at home -Hold p.o. medications Chronic back pain On tramadol at home -Hold p.o. medications Constipation On Colace at home -Hold p.o. medications FEN: Fluids: NS at 70 mls/hour Electrolytes: No electrolyte abnormalities noted. Continue to monitor and replete as needed. Diet: N.p.o. until official swallow evaluation completed DVT prophylaxis -Hold anticoagulation until imaging confirms no evidence of hemorrhage. Patient's daughter would like to discuss care goals with palliative care team regarding treatment options and possibility of comfort care. She states that she would like for the patient to undergo the MRI/MRA and decide upon further workup following the results of those imaging studies. Patient had signed DNR paperwork yesterday while in the residential, however, it lacks a physician signature. Daughter is the POA and surrogate medical decision maker, who would like to keep the patient DNI, but requests ACLS protocol if cardiac arrest should occur. juan luis Sheriff and Dr. Delacruz <Philippe NoelNatalie Danielle - 12/20/18 21:38> - Attending Attestation The exam, history, and the medical decision-making described in the above note were completed with the assistance of the resident physician. I reviewed and agree with the findings presented. I attest that I had a [id number] encounter with the patient on the same day, and personally performed and documented my assessment and findings in the medical record. Agree with resident histories as documented above. all info obtained from EMR and family. I discussed prognosis with daughters and grandaughters present while she was getting her MRI and then again when I examined her afterwards on 12/20/18. At that time patient was not following commands, had minimal movement of right side, would squeeze hand on left but would not release to command. pupils were reactive but eyes would not open to any stimuli. she did not speak but did make some groaning noises. she did respond to pain some. even without smiling, facial droop noted. she was hemodynamically stable, with hypertension and not needing more than 2L NC on my exam. Family discussed with palliative care and neurology. family seems reasonable. on 12/21 will discuss hospice more as this is likely an appropriate option given size of her stroke and defecits seen. <Wayne Delacruz - 12/21/18 07:43>
[2018-12-20] MEDS ORDERED: Acetaminophen 325 MG Tablet PO PRN (12:00)
[2018-12-20] MEDS ORDERED: Senna/Docusate Sodium 8.6/50 MG Tablet PO PRN (12:00)
--- NOTE | 2018-12-20 12:20 | ECG ---
Date Performed: 12/20/2018 Time Performed: 08:57:41 PTAGE: 88 years EKG: Sinus rhythm WITH OCCASIONAL SUPRAVENTRICULAR PREMATURE COMPLEXES LEFT BUNDLE BRANCH BLOCK ABNORMAL ECG Since the PREVIOUS TRACING , no significant change noted PREVIOUS TRACIN03/08/2002 11.53 DOCTOR: Yemi Leung Interpretating Date/Time 12/20/2018 12:14:29
--- NOTE | 2018-12-20 13:21 | MR ---
EXAM DATE: 12/20/2018 1:17 PM EST AGE/SEX: 88 years / Female INDICATIONS: CVA. Left sided weakness and facial droop for one day. CLINICAL DATA: This is the patient's initial encounter. Patient reports that signs and symptoms have been present for 1 day and indicates a pain score of 6/10. MEDICAL/SURGICAL HISTORY: None. . Bilateral knee replacement, Loop recorder Meditron reveal. COMPARISON: [facility] [place], CT STROKE ALERT HEAD WO CON, 12/20/2018. . TECHNIQUE: 3D [id number] MRA was performed. Source images, multiplanar STS MIP, and 3D volum e MIP reconstructions were reviewed. FINDINGS: Moderate motion artifact. Examination is limited however there are moderate atherosclerotic changes p resent in the intracranial vessels including the distal basilar artery. MRI had shown ischemic change s in the left sylvian region. The anterior branches of the M2 segment of the left middle cerebral art ricarda are absent. CONCLUSION: 1. Atherosclerotic vascular disease as above with absent anterior branches M2 left middle cerebral a rtery Electronically signed by: Pete Hilliard MD Board Certified Radiologist 12/20/2018 1:20 PM EST
--- NOTE | 2018-12-20 13:24 | MR ---
EXAM DATE: 12/20/2018 1:17 PM EST AGE/SEX: 88 years / Female INDICATIONS: CVA. Left sided weakness with facial droop. CLINICAL DATA: This is the patient's initial encounter. Patient reports that signs and symptoms have been present for 1 day and indicates a pain score of 8/10. MEDICAL/SURGICAL HISTORY: None. . Bilateral knee replacement, Medtronic Reveal loop recorder. COMPARISON: No prior exams available for comparison. TECHNIQUE: Multiplanar, multisequence examination of the brain was performed without and with 10 ml G adavist (gadobutrol) contrast as a single exam dose. FINDINGS: Cerebrum: There are scattered areas of restricted diffusion involving a large anterior portion of th e left sylvian region extending into the left posterior temporoparietal and occipital region consiste nt with an acute infarction. Subtle parenchymal hemorrhage is present high over the convexity. This i s associated with minimal mass effect as yet. There are moderate periventricular white matter changes. The right hemisphere is unremarkable. There are no extra-axial fluid collections appreciated. Minimal lacunar type ischemic changes are seen in the brainstem level of brachium pontis. CONCLUSION: 1. MRI consistent with acute ischemic event involving a large segment of the left middle cerebral ar jenni territory extending from the orbital frontal region to the high left parotid region with minimal hemorrhage. 2. There is currently minimal mass effect associated with this 3. Right hemisphere is unremarkable Electronically signed by: Pete Hilliard MD Board Certified Radiologist 12/20/2018 1:23 PM EST
--- NOTE | 2018-12-20 13:27 | MR ---
EXAM DATE: 12/20/2018 1:17 PM EST AGE/SEX: 88 years / Female INDICATIONS: . CVA, Left sided weakness and facial droop. CLINICAL DATA: This is the patient's initial encounter. Patient reports that signs and symptoms have been present for 1 day and indicates a pain score of 8/10. MEDICAL/SURGICAL HISTORY: None. . Bilateral knee replacement, Medtronic Reveal loop recorder. COMPARISON: No prior exams available for comparison. TECHNIQUE: 10 ml Gadavist (gadobutrol) contrast infused MRA (single exam dose) of the extracranial circulation was performed using a neurovascular coil. Postprocessing was performed, including rotati ng sub-volume maximum intensity projections of each carotid artery, rotating full-volume maximum inte nsity projections of both carotid arteries, sagittal and coronal sliding thin-slab reformations of ea ch carotid artery, and left oblique sliding thin-slab reformation through the aortic arch to include the origin of the arch branch vessels. FINDINGS: Aortic Arch : Marked tortuosity is evident. There is a three-vessel origin of the great vessels from the aorta. No evidence of ostial narrowing. Right Carotid : Moderate motion artifact. I don't see hemodynamically significant stenosis. Left Carotid : Moderate motion artifact. I don't see hemodynamically significant stenosis. Vertebrals : Both vertebral arteries are patent. CONCLUSION: 1. Negative for hemodynamically significant stenosis. Examination is not adequate to exclude a sourc e of emboli from the left carotid. Percent stenosis is calculated using the diameter of the stenotic region over the diameter of the nor mal distal internal carotid artery Electronically signed by: Pete Hilliard MD Board Certified Radiologist 12/20/2018 1:25 PM EST
--- NOTE | 2018-12-20 14:25 | P.CONPAL ---
Consult Service: Palliative Care Requesting Physician: Natalie Noel Reason for Consult: a. To assist with evaluation and management of symptoms including: Altered mental status, weakness b. To assist medical decision maker(s) with: better understanding of current medical conditions; weighing benefits/burdens of medical treatment options; making medical treatment decisions. Primary Care Provider: UNKNOWN History of Present Illness History of Present Illness: This is an 88-year-old female with a past medical history of hypertension hyperlipidemia, mild dementia, osteoarthritis and vitamin D deficiency who was found altered at [facility] where she resides. She was last seen at her normal baseline of alert and conversant in the early afternoon but when staff awakened her in the morning they found her altered with right-sided weakness. She was nonverbal, not responding to voice but is squeezing her granddaughters hand with her left hand. She withdraws from painful stimuli but is unable to follow commands. The patient had requested not to be resuscitated and to be made a DO NOT RESUSCITATE status yesterday, however it had not been signed by the physician yet. Clinical data on presentation * MRI of the head with and without contrast shows acute ischemic event involving a large segment of the left middle cerebral artery territory extending from the orbital frontal region to the high left parotid region with minimal hemorrhage. Currently minimal mass-effect associated with this. Right hemisphere is unremarkable. * MRA of the head without contrast shows atherosclerotic vascular disease as above with absent anterior branches M2 left middle cerebral artery. * CT of the head without contrast shows acute to subacute area of infarction involving the left MCA territory with suspected small punctate areas of hemorrhage. * EKG shows sinus rhythm with occasional supraventricular premature complexes, left bundle branch block. * MRA of the neck with contrast is negative for hemodynamically significant stenosis but not adequate to exclude a source of emboli from the left carotid. * WBC 11.1, Hgb 12.6, HCT 38.8, PLT 213, PT 10.6, INR 1.0, APTT 25.7, fibrinogen 303, sodium 141, potassium 4.5, BUN 23, creatinine 1.1, T CK 274, troponin 0 0.03, vitamin B12 392, TSH 0.943. * Urinalysis shows a hazy straw-colored sample with a pH of 8.0, specific gravity 1.010, 100 protein, moderate occult blood, negative leukocyte esterase, negative nitrate, rare bacteria, no culture indicated. Urine toxicology is negative. She was seen by Dr. Garcia for neurology who noted a large stroke, certainly over several hours old, not a TPA or clot extraction candidate. He notes the size is over two thirds of the middle cerebral artery territory. Considering the size of her stroke and her baseline dementia, he opines that comfort measures would be a reasonable option if family wishes are consistent with that. She was seen by speech therapy who found her unable to follow gross oral motor commands, unable to open her mouth to spoon or straw, nonverbal, so no food or fluid was offered due to the high risk of aspiration. She is seen with family at the bedside, moaning and making sounds like clearing her throat but not verbalizing or responding to voice or touch. Past medical history Hypertension Glaucoma Hypercholesterolemia Neuropathy Constipation Dementia Osteoarthritis Cervical disc disorder Repeated falls Vitamin D deficiency Surgical history: Knee replacement Loop recorder placement Social history: Resides in a residential Former smoker Daughter denies alcohol or illicit drug use. Family history Mother of kidney failure Function/Cognitive Trajectory: According to the family, there had been no significant decline. Patient was able to ambulate with a walker, feed herself, but required some assistance with bathing. She had some short-term memory loss but recognized her family and was able to participate in her own care. She had had a couple of falls prior to going into the residential, but no fractures or serious injuries. . Review of Systems Patient is nonverbal and unable to provide their own ROS. A 12 part ROS taken as best as possible from medical record and available family. Neurologic: Reports confusion (Altered mental status), Reports frequent falls, Reports localized weakness, Reports memory loss PMFSH - History History Provided By: Family Member - Medical History Medical History: Medical History (Last Reviewed 12/20/18 @ 13:56 by Amalia [employer] Crusher, [employer]OLPH[employer] RESEARCHER) Degenerative disk disease Glaucoma HTN (hypertension) Hyperlipemia Hyperlipemia - Tobacco History Second Hand Smoke Exposure: No Tobacco Use In Past 30 Days: No Smoking Status: Former smoker Tobacco Type: Cigarettes - Alcohol History How Often Do You Have a Drink Containing Alcohol: Never - Substance Use History Substance History: No History of Abuse - Travel History Recent Travel in the [place] Within the Last 8 Weeks: No Recent Travel Out of the Country Within the Last 8 Weeks: No - Immunization History Tetanus Immunization: <5 Years Medications and Allergies Active Medications: Active Medications Acetaminophen (Tylenol) 650 mg PO Q4H PRN PRN Reason: Temp > 100.4 Aspirin (Aspirin Supp) 300 mg RECTAL DAILY [facility] Last Admin: 12/20/18 09:51 Dose: Not Given Sodium Chloride (Ns Inj) 1,000 mls @ 70 mls/hr IV.CONT .[id number] [facility] Last Admin: 12/20/18 09:52 Dose: 70 mls/hr Ondansetron HCl (Zofran Inj) 4 mg IV.PUSH Q6H PRN PRN Reason: NAUSEA OR VOMITING Senna/Docusate Sodium (Janae-Colace) 1 tab PO BID PRN PRN Reason: CONSTIPATION Sodium Chloride (Ns Flush) 2 ml IV.FLUSH BID [facility] Sodium Chloride (Ns Flush) 2 ml IV.FLUSH UNSCH PRN PRN Reason: FLUSH AFTER USING IV ACCESS Allergies Allergy/AdvReac Type Severity Reaction Status Date / Time codeine Allergy Agitation Verified 12/20/18 09:23 Penicillins Allergy Agitation Verified 12/20/18 09:23 Home Medications Medication Instructions Recorded Confirmed Type amlodipine 5 mg PO DAILY 12/20/18 12/20/18 History atorvastatin [Lipitor] 10 mg PO HS 12/20/18 12/20/18 History atropine [Isopto Atropine] 1 drp LEFT EYE DAILY 12/20/18 12/20/18 History carvedilol [Coreg] 6.25 mg PO BID 12/20/18 12/20/18 History cilostazol 100 mg PO BID 12/20/18 12/20/18 History docusate sodium [Colace] 100 mg PO BID 12/20/18 12/20/18 History dorzolamide 1 drp RIGHT EYE BID 12/20/18 12/20/18 History ergocalciferol (vitamin D2) 50,000 unit PO QWEEK 12/20/18 12/20/18 History [Vitamin D2] furosemide [Lasix] 20 mg PO DAILY 12/20/18 12/20/18 History gabapentin 200 mg PO TID 12/20/18 12/20/18 History memantine [Namenda] 5 mg PO DAILY 12/20/18 12/20/18 History tramadol 50 mg PO Q12HR PRN 12/20/18 12/20/18 History tramadol 50 mg PO Q6H PRN 12/20/18 12/20/18 History Advance Directives Living Will: Yes Health Care Surrogate Name and Number: cindi Grimes- [phone] and Cortney Cope- [phone] Physical Exam Vital Signs: Vital Signs - 24 hr 12/20/18 08:52 12/20/18 09:00 12/20/18 09:27 Temperature 98.5 F Pulse Rate 77 Respiratory Rate 18 Blood Pressure 167/93 H Pulse Oximetry 100 100 100 12/20/18 12:35 Temperature Pulse Rate 100 H Respiratory Rate 18 Blood Pressure 162/83 H Pulse Oximetry I&O: Intake & Output 12/18/18 12/19/18 12/20/18 12/21/18 06:59 06:59 06:59 06:59 Weight 207 lb 14.334 oz Physical Exam: CONSTITUTIONAL/GENERAL: This is an adequately nourished patient, in mild distress. TUBES/LINES/DRAINS: PIV SKIN: No jaundice, rashes, or lesions. Ecchymoses on upper extremities. No wounds seen anteriorly. Skin temperature appropriate. Not diaphoretic. HEAD: Atraumatic. Normocephalic. EYES: Right pupil round, reactive left eye enucleated. No scleral icterus, injection or drainage. ENT: Unable to assess hearing, no nasal bleeding. Oral mucosa moist. NECK: Trachea midline. Supple, nontender. No palpable thyroid enlargement or nodularity. CARDIOVASCULAR: Regular rate and rhythm with 2/6 systolic ejection murmur, no gallops, or rubs. No JVD. Peripheral pulses symmetric. RESPIRATORY/CHEST: Symmetric, unlabored respirations. Clear to auscultation. Breath sounds equal bilaterally. No wheezes, rales, or rhonchi. GASTROINTESTINAL: Abdomen soft, non-tender, nondistended. No hepato-splenomegaly , or palpable masses. No guarding. Bowel sounds present. GENITOURINARY: Without palpable bladder distension. MUSCULOSKELETAL: Extremities without clubbing, cyanosis, or edema. Spontaneously moving left arm and resists movement with the right arm. No spontaneous movement seen of either lower extremity. LYMPHATICS: No palpable cervical or supraclavicular adenopathy. NEUROLOGICAL: Unresponsive, moaning, not following commands. PSYCHIATRIC: Mildly agitated, not communicating. . Diagnostic Tests Laboratory: Laboratory Results - last 72 hr 12/20/18 12/20/18 12/20/18 08:55 08:55 08:55 WBC 11.1 H RBC 4.36 Hgb 12.6 POC Hgb (Calc) 13.9 Hct 38.8 POC Hct 41.0 MCV 88.9 MCH 29.0 MCHC 32.6 RDW 15.1 Plt Count 213 MPV 9.5 Neut % (Auto) 80.7 H Lymph % (Auto) 14.5 [place] % (Auto) 4.2 Eos % (Auto) 0.0 Baso % (Auto) 0.6 Neut # (Auto) 9.0 H Lymph # (Auto) 1.6 [place] # (Auto) 0.5 Eos # (Auto) 0.0 Baso # (Auto) 0.1 WBC Differential . Differential Comment Auto diff final PT INR APTT Fibrinogen POC Sodium 141 POC Potassium 4.5 POC Chloride 103 POC BUN 23 H POC Creatinine 1.1 POC Glucose 142 H Total Creatine Kinase 274 H CK-MB (CK-2) 3.5 CK-MB (CK-2) % 1.3 Troponin I 0.03 Vitamin B12 TSH Urine Color Urine Clarity Urine pH Ur Specific [place] Urine Protein Urine Glucose (UA) Urine Ketones Urine Occult Blood Urine Nitrate Urine Bilirubin Urine Urobilinogen Ur Leukocyte Esterase Urine RBC Urine WBC Ur Squamous Epith Cells Urine Bacteria Urine Mucus Micro UA Comment Ur Microscopic Review Urine Culture Comments Urine Opiates Screen Ur Barbiturates Screen Ur Amphetamines Screen U Benzodiazepines Scrn Urine Cocaine Screen U Cannabinoids Screen Blood Type O Positive Antibody Screen Negative 12/20/18 12/20/18 12/20/18 08:55 09:48 09:48 WBC RBC Hgb POC Hgb (Calc) Hct POC Hct MCV MCH MCHC RDW Plt Count MPV Neut % (Auto) Lymph % (Auto) [place] % (Auto) Eos % (Auto) Baso % (Auto) Neut # (Auto) Lymph # (Auto) [place] # (Auto) Eos # (Auto) Baso # (Auto) WBC Differential Differential Comment PT 10.6 INR 1.0 APTT 25.7 Fibrinogen 303 POC Sodium POC Potassium POC Chloride POC BUN POC Creatinine POC Glucose Total Creatine Kinase CK-MB (CK-2) CK-MB (CK-2) % Troponin I Vitamin B12 392 TSH 0.943 Urine Color Urine Clarity Urine pH Ur Specific [place] Urine Protein Urine Glucose (UA) Urine Ketones Urine Occult Blood Urine Nitrate Urine Bilirubin Urine Urobilinogen Ur Leukocyte Esterase Urine RBC Urine WBC Ur Squamous Epith Cells Urine Bacteria Urine Mucus Micro UA Comment Ur Microscopic Review Urine Culture Comments Urine Opiates Screen Neg Ur Barbiturates Screen Neg Ur Amphetamines Screen Neg U Benzodiazepines Scrn Neg Urine Cocaine Screen Neg U Cannabinoids Screen Neg Blood Type Antibody Screen 12/20/18 09:48 WBC RBC Hgb POC Hgb (Calc) Hct POC Hct MCV MCH MCHC RDW Plt Count MPV Neut % (Auto) Lymph % (Auto) [place] % (Auto) Eos % (Auto) Baso % (Auto) Neut # (Auto) Lymph # (Auto) [place] # (Auto) Eos # (Auto) Baso # (Auto) WBC Differential Differential Comment PT INR APTT Fibrinogen POC Sodium POC Potassium POC Chloride POC BUN POC Creatinine POC Glucose Total Creatine Kinase CK-MB (CK-2) CK-MB (CK-2) % Troponin I Vitamin B12 TSH Urine Color Straw Urine Clarity Hazy H Urine pH 8.0 Ur Specific [place] 1.010 Urine Protein 100 H Urine Glucose (UA) Negative Urine Ketones Negative Urine Occult Blood Moderate H Urine Nitrate Negative Urine Bilirubin Negative Urine Urobilinogen Less than 2 Ur Leukocyte Esterase Negative Urine RBC 10 H Urine WBC 3 Ur Squamous Epith Cells 5 Urine Bacteria Rare H Urine Mucus Few H Micro UA Comment Cath-culture not ind Ur Microscopic Review Not Reportable Urine Culture Comments Cath-cult not ind Urine Opiates Screen Ur Barbiturates Screen Ur Amphetamines Screen U Benzodiazepines Scrn Urine Cocaine Screen U Cannabinoids Screen Blood Type Antibody Screen Result Diagrams: 12/20/18 08:55 Imaging: Neck MRA 12/20/18 00:00 CONCLUSION: 1. Negative for hemodynamically significant stenosis. Examination is not adequate to exclude a source of emboli from the left carotid. Percent stenosis is calculated using the diameter of the stenotic region over the diameter of the normal distal internal carotid artery Head CT 12/20/18 09:01 CONCLUSION: Acute to subacute area of infarction involving the left middle cerebral artery territory with suspected small punctate areas of hemorrhage. Report was called by Dr. Hsieh to at 9:20 AM.. Head MRI 12/20/18 09:16 CONCLUSION: 1. MRI consistent with acute ischemic event involving a large segment of the left middle cerebral artery territory extending from the orbital frontal region to the high left parotid region with minimal hemorrhage. 2. There is currently minimal mass effect associated with this 3. Right hemisphere is unremarkable Head MRA 12/20/18 09:17 CONCLUSION: 1. Atherosclerotic vascular disease as above with absent anterior branches M2 left middle cerebral artery Patient/Family Conference Present at Family Conference: Spoke with patient's 2 daughters and granddaughter at bedside. Reviewed clinical course, possible interventions, goals of medical treatment patient's current clinical status, past medical, social, family, psychosocial history. Reviewed palliative care purpose and focus as regarding symptom management and support in formulating goals of care. Reviewed CODE STATUS and advanced directives, as well as the below listed items. Provided palliative care contact information. All questions answered to the best of my ability. . Family Conference Location: Bedside Issues Discussed: * Palliative care role, purpose, approach * Additional medical, psychosocial, and spiritual history * Patients general health, functional status, and cognitive changes in the months leading up to the current hospitalization * Patient/family understanding of the current medical problems * Patient/family understanding of prognosis * Patients goals of care as best understood from advance directives and/or conversations and/or values * Current medical treatment options and benefits/burdens of those options * Likely scenarios comparing ongoing aggressive care with a transition to comfort measures only * Questions answered to the best of my ability * Palliative care contact information provided Assessment and Plan Pertinent Non-Medical Issues: Psychosocial: She was born in [place] but has spent much of her life in [place]. She briefly moved to [place] for about a year and a half but then returned back to [place] where most of her family is local. She has 4 daughters and 4 sons. Her daughter Cindi healthcare surrogate. Spiritual: Rastafarian sarita. Legal: Healthcare surrogate on the chart. Ethical issues impacting care: None noted. . Important Contacts: Daughter: Cindi Grimes Daughter: Cortney Cope Son: Bruno Miller . Prognosis: Her prognosis is guarded. This was a very large stroke and she will likely have significant residual disabilities per Dr. Garcia. She is of advanced age with multiple comorbidities and had recently requested her own DNR. Family is complying with her request and has made her a DO NOT RESUSCITATE status. She would be hospice appropriate if goals were consistent. Code Status: No Code DNR Plan: PLAN: Legal decision maker: Patient is not capacitated for decision-making and it is unlikely that she will ever regain capacity. She has completed healthcare surrogate naming her daughter Cindi Grimes her primary healthcare surrogate and her daughter Cortney Cope her second surrogate. Goals: Comfort oriented. CODE STATUS: DO NOT RESUSCITATE SYMPTOMS: * AMS/confusion: She had a large MCA stroke and at this time is nonverbal, unable to follow commands. Family would like to allow a short time to see if she has any significant recovery but do not wish for a lot of aggressive interventions. * Weakness: At baseline she ambulates with a walker and earlier today she was displaying right arm flaccidity, however at this evaluation she is providing weak, gross resistance to passive movement of her right arm. She was unable to participate with speech therapy today. Palliative care will continue to follow the patient during hospital course as condition evolves, to assist patient/decision-maker with understanding of their medical conditions, weighing benefits/burdens of treatment options, for clarification of goals of treatment. Additionally will assist with any symptoms of palliative concern. . Appreciation Thank you for the opportunity to participate in the care of Darlene Miller. Attestation Attestation: To help prompt me to consider important information that might be impacting today's encounter and assessment, information from prior notes written by myself or my colleagues may have been "brought forward" into today's note. My signature on this note, however, is an attestation that I personally performed the exam, history, and/or decision-making noted today, and, unless otherwise indicated, the interactions with patient, family, and staff as well as the review of records all occurred today. I also attest that the listed assessment and stated plan reflect my best clinical judgment today based on the combination of historical information, prior notes, and today's exam/ interactions. When time spent is documented, it refers only to time spent today by the signer, or if indicated, combined time spent today by collaborating physician/nurse practitioner. .
[2018-12-20] MEDS ORDERED: Gadobutrol PF 10 MMOL/10 ML Vial (for RAD) IV.SIG ONE (14:42)
[2018-12-20] MEDS ORDERED: Acetaminophen Inj 650 MG/65 ML VIAL IV.SIG PRN (16:21)
--- NOTE | 2018-12-20 20:04 | ECHRPT ---
Indication: CVA/TIA CONCLUSIONS The left ventricular systolic function is low normal with an estimated ejection fraction in the rang e of 50- 55%. There was limited left ventricular wall motion assessment due to poor endocardial visualization. Trace mitral valve regurgitation. Trace aortic valve regurgitation. Mild to moderate aortic valve stenosis (Vmax 3.0, peak 37, mean 19, SIDRA 1.0). There is trace tricuspid valve regurgitation. BP: / HR: Rhythm: Sinus MEASUREMENTS (Male / Female) Normal Values Technical Quality:Poor 2D ECHO LV Diastolic Diameter PLAX 4.0 cm 4.2 - 5.9 / 3.9 - 5.3 cm LV Systolic Diameter PLAX 3.2 cm IVS Diastolic Thickness 1.0 cm 0.6 - 1.0 / 0.6 - 0.9 cm LVPW Diastolic Thickness 1.0 cm 0.6 - 1.0 / 0.6 - 0.9 cm LV Relative Wall Thickness 0.5 RV Internal Dim ED PLAX 3.7 cm LVOT Diameter 1.6 cm LA Systolic Diameter LX 3.0 cm 3.0 - 4.0 / 2.7 - 3.8 cm DOPPLER AV Peak Velocity 303.0 cm/s AV Peak Gradient 36.7 mmHg AV Mean Gradient 19.0 mmHg AV Velocity Time Integral 57.8 cm LVOT Peak Velocity 134.5 cm/s LVOT Peak Gradient 7.2 mmHg LVOT Velocity Time Integral 26.1 cm AV Area Cont Eq vti 0.9 cm AV Area Cont Eq pk 0.9 cm LV E' Lateral Velocity 7.8 cm/s TR Peak Velocity 242.0 cm/s TR Peak Gradient 23.4 mmHg Right Atrial Pressure 10.0 mmHg Pulmonary Artery Systolic Pressu 33.4 mmHg Right Ventricular Systolic Press 33.4 mmHg FINDINGS LEFT VENTRICLE Normal left ventricular size. Wall thickness is normal. The left ventricular systolic function is low normal with an estimated ejection fraction in the rang e of 50- 55%. There was limited left ventricular wall motion assessment due to poor endocardial visualization. RIGHT VENTRICLE The right ventricle was not well visualized. LEFT ATRIUM The left atrial size is normal. RIGHT ATRIUM The right atrial size is normal. ATRIAL SEPTUM The interatrial septum not well visualized. AORTA The aortic root and proximal ascending aorta are normal in size on limited imaging. MITRAL VALVE Structurally normal mitral valve. No mitral valve stenosis. Trace mitral valve regurgitation. AORTIC VALVE The aortic valve is not well visualized. Trace aortic valve regurgitation. Mild to moderate aortic valve stenosis (Vmax 3.0, peak 37, mean 19, SIDRA 1.0) TRICUSPID VALVE There is trace tricuspid valve regurgitation. The estimated pulmonary arterial pressure is 33mmHg. PULMONARY VALVE The pulmonary valve is not well visualized. VESSELS The inferior vena cava was not well visualized. Quinn Cantrell DO (Electronically Signed) Final Date:20 December 2018 20:03
[2018-12-20] MEDS ORDERED: Acetaminophen Inj 650 MG/65 ML VIAL IV.SIG ONE (21:29)
--- NOTE | 2018-12-20 23:48 | XR ---
EXAM DATE: 12/20/2018 11:40 PM EST AGE/SEX: 88 years / Female INDICATIONS: Short of breath. CLINICAL DATA: This is the patient's subsequent encounter. Patient reports that signs and symptoms h ave been present for 1 day and indicates a pain score of Nonresponsive. MEDICAL/SURGICAL HISTORY: Non-responsive. Non-responsive. COMPARISON: No prior exams available for comparison. FINDINGS: A single AP view of the chest demonstrates elevation right hemidiaphragm without evidence of mass, in filtrate or effusion. Mild cardiomegaly. Loop recorder device. The cardiomediastinal contours are unr emarkable. Osseous structures are intact. CONCLUSION: 1. Elevation right hemidiaphragm. 2. No infiltrate. Electronically signed by: Nic Villafuerte MD Board Certified Radiologist 12/20/2018 11:46 PM EST
[2018-12-21] VITALS: O2SAT 99
[2018-12-21 01:04] VITALS: RESP 16
[2018-12-21] MEDS: Sod Chloride 0.9% Inj 1,000 ML IV.CONT SCH (03:06)
--- NOTE | 2018-12-21 07:35 | P.PNNEU ---
Subjective Active Medications: Active Medications Acetaminophen (Tylenol) 650 mg PO Q4H PRN PRN Reason: Temp > 100.4 Aspirin (Aspirin Supp) 300 mg RECTAL DAILY [facility] Last Admin: 12/20/18 09:51 Dose: Not Given Sodium Chloride (Ns Inj) 1,000 mls @ 70 mls/hr IV.CONT .[id number] [facility] Last Admin: 12/21/18 03:06 Dose: 70 mls/hr Acetaminophen (Ofirmev Inj) 650 mg in 65 mls @ 400 mls/hr IV.SIG Q6H PRN PRN Reason: Fever > 100.4F Last Infusion: 12/20/18 18:24 Dose: Infused Ondansetron HCl (Zofran Inj) 4 mg IV.PUSH Q6H PRN PRN Reason: NAUSEA OR VOMITING Senna/Docusate Sodium (Janae-Colace) 1 tab PO BID PRN PRN Reason: CONSTIPATION Sodium Chloride (Ns Flush) 2 ml IV.FLUSH BID [facility] Last Admin: 12/20/18 20:24 Dose: Not Given Sodium Chloride (Ns Flush) 2 ml IV.FLUSH UNSCH PRN PRN Reason: FLUSH AFTER USING IV ACCESS Allergies/Adverse Reactions: Allergies Allergy/AdvReac Type Severity Reaction Status Date / Time codeine Allergy Agitation Verified 12/20/18 09:23 Penicillins Allergy Agitation Verified 12/20/18 09:23 Physical Exam Vital signs: Vital Signs 12/20/18 08:52 12/20/18 09:00 12/20/18 09:27 Temperature 98.5 F Pulse Rate 77 Respiratory Rate 18 Blood Pressure 167/93 H Pulse Oximetry 100 100 100 12/20/18 12:35 12/20/18 15:46 12/20/18 16:00 Temperature 101.7 F H 101.5 F H Pulse Rate 100 H 95 H Respiratory Rate 18 16 Blood Pressure 162/83 H 195/88 H Pulse Oximetry 99 12/20/18 18:46 12/20/18 19:50 12/20/18 20:00 Temperature 101.9 F H 101.7 F H Pulse Rate 88 Respiratory Rate 20 Blood Pressure 161/80 H Pulse Oximetry 100 99 12/20/18 23:28 12/21/18 00:00 12/21/18 04:00 Temperature 101.2 F H 100.8 F H Pulse Rate 76 66 Respiratory Rate 16 16 Blood Pressure 169/77 H 169/74 H Pulse Oximetry 99 99 12/21/18 04:55 Temperature 99.2 F Pulse Rate Respiratory Rate Blood Pressure Pulse Oximetry Intake & Output 12/20/18 12/21/18 12/21/18 18:59 06:59 18:59 Intake Total 465 / 465 665 / 665 Output Total 100 / 100 500 / 500 Balance 365 / 365 165 / 165 Weight 94.3 kg Intake: IV 465 / 465 665 / 665 NS Inj 1,000 ML @ 70 mls/hr IV. 400 / 400 600 / 600 CONT .[id number] [facility] Rx#:[id number] Ofirmev Inj 650 mg In 65 ml @ 65 / 65 65 / 65 400 mls/hr IV.SIG ONCE ONE Rx#: [id number] Output: Urine 500 / 500 Urine Amount (Catheter) 100 / 100 Female External 100 / 100 Other: # Voids 3 # Incontinent Voids 1 Weight On Admission 94.3 kg Narrative: murmers withdraws rle a little not rue head to left - Urinary Catheter Management Female External Cath placed during this visit: no Objective Laboratory Results - last 24 hr 12/20/18 12/20/18 12/20/18 08:55 08:55 08:55 WBC 11.1 H RBC 4.36 Hgb 12.6 POC Hgb (Calc) 13.9 Hct 38.8 POC Hct 41.0 MCV 88.9 MCH 29.0 MCHC 32.6 RDW 15.1 Plt Count 213 MPV 9.5 Neut % (Auto) 80.7 H Lymph % (Auto) 14.5 [place] % (Auto) 4.2 Eos % (Auto) 0.0 Baso % (Auto) 0.6 Neut # (Auto) 9.0 H Lymph # (Auto) 1.6 [place] # (Auto) 0.5 Eos # (Auto) 0.0 Baso # (Auto) 0.1 WBC Differential . Differential Comment Auto diff final PT INR APTT Fibrinogen POC Sodium 141 POC Potassium 4.5 POC Chloride 103 POC BUN 23 H POC Creatinine 1.1 POC Glucose 142 H Total Creatine Kinase 274 H CK-MB (CK-2) 3.5 CK-MB (CK-2) % 1.3 Troponin I 0.03 Vitamin B12 TSH Urine Color Urine Clarity Urine pH Ur Specific [place] Urine Protein Urine Glucose (UA) Urine Ketones Urine Occult Blood Urine Nitrate Urine Bilirubin Urine Urobilinogen Ur Leukocyte Esterase Urine RBC Urine WBC Ur Squamous Epith Cells Urine Bacteria Urine Mucus Micro UA Comment Ur Microscopic Review Urine Culture Comments Urine Opiates Screen Ur Barbiturates Screen Ur Amphetamines Screen U Benzodiazepines Scrn Urine Cocaine Screen U Cannabinoids Screen Blood Type O Positive Antibody Screen Negative 12/20/18 12/20/18 12/20/18 08:55 09:48 09:48 WBC RBC Hgb POC Hgb (Calc) Hct POC Hct MCV MCH MCHC RDW Plt Count MPV Neut % (Auto) Lymph % (Auto) [place] % (Auto) Eos % (Auto) Baso % (Auto) Neut # (Auto) Lymph # (Auto) [place] # (Auto) Eos # (Auto) Baso # (Auto) WBC Differential Differential Comment PT 10.6 INR 1.0 APTT 25.7 Fibrinogen 303 POC Sodium POC Potassium POC Chloride POC BUN POC Creatinine POC Glucose Total Creatine Kinase CK-MB (CK-2) CK-MB (CK-2) % Troponin I Vitamin B12 392 TSH 0.943 Urine Color Urine Clarity Urine pH Ur Specific [place] Urine Protein Urine Glucose (UA) Urine Ketones Urine Occult Blood Urine Nitrate Urine Bilirubin Urine Urobilinogen Ur Leukocyte Esterase Urine RBC Urine WBC Ur Squamous Epith Cells Urine Bacteria Urine Mucus Micro UA Comment Ur Microscopic Review Urine Culture Comments Urine Opiates Screen Neg Ur Barbiturates Screen Neg Ur Amphetamines Screen Neg U Benzodiazepines Scrn Neg Urine Cocaine Screen Neg U Cannabinoids Screen Neg Blood Type Antibody Screen 12/20/18 09:48 WBC RBC Hgb POC Hgb (Calc) Hct POC Hct MCV MCH MCHC RDW Plt Count MPV Neut % (Auto) Lymph % (Auto) [place] % (Auto) Eos % (Auto) Baso % (Auto) Neut # (Auto) Lymph # (Auto) [place] # (Auto) Eos # (Auto) Baso # (Auto) WBC Differential Differential Comment PT INR APTT Fibrinogen POC Sodium POC Potassium POC Chloride POC BUN POC Creatinine POC Glucose Total Creatine Kinase CK-MB (CK-2) CK-MB (CK-2) % Troponin I Vitamin B12 TSH Urine Color Straw Urine Clarity Hazy H Urine pH 8.0 Ur Specific [place] 1.010 Urine Protein 100 H Urine Glucose (UA) Negative Urine Ketones Negative Urine Occult Blood Moderate H Urine Nitrate Negative Urine Bilirubin Negative Urine Urobilinogen Less than 2 Ur Leukocyte Esterase Negative Urine RBC 10 H Urine WBC 3 Ur Squamous Epith Cells 5 Urine Bacteria Rare H Urine Mucus Few H Micro UA Comment Cath-culture not ind Ur Microscopic Review Not Reportable Urine Culture Comments Cath-cult not ind Urine Opiates Screen Ur Barbiturates Screen Ur Amphetamines Screen U Benzodiazepines Scrn Urine Cocaine Screen U Cannabinoids Screen Blood Type Antibody Screen Review/Management - Review/Management Plan: imp large left mca cva on mri trop neg i dw daughter and rec comfort care px very poor
--- NOTE | 2018-12-21 07:54 | CT ---
EXAM DATE: 12/21/2018 7:42 AM EST AGE/SEX: 88 years / Female INDICATIONS: Follow up stroke. CLINICAL DATA: This is the patient's subsequent encounter. Patient reports that signs and symptoms h ave been present for 2 days and indicates a pain score of Nonresponsive. MEDICAL/SURGICAL HISTORY: Hypertension. None. RADIATION DOSE: 41.83 CTDI (mGy) COMPARISON: [facility] [place], MR HEAD W & W/O CONTRAST, 12/20/2018. . TECHNIQUE: CT of the head without contrast. Using automated exposure control and adjustment of the mA and/or kV according to patient size, radiation dose was kept as low as reasonably achievable to ob tain optimal diagnostic quality images. DICOM format image data is available electronically for revi ew and comparison. FINDINGS: Cerebrum: Evolving large left MCA territory infarct containing focal punctate calcifications and inc reased density likely reflecting subdural blood products. No significant intercurrent hemorrhage. Ass ociated mass effect with mild effacement of the left lateral ventricle but no significant subfalcine shift. Ventricles are otherwise stable in size. Posterior Fossa: The cerebellum and brainstem are intact. The 4th ventricle is midline. The cerebe llopontine angle is unremarkable. Extracranial: The visualized portion of the orbits is intact. Skull: The calvaria is intact. No evidence of skull fracture. CONCLUSION: 1. Evolving large left MCA territory infarct with stable trace hemorrhage. 2. No intercurrent hemorrhage or herniation. Electronically signed by: Julian An MD Board Certified Radiologist 12/21/2018 7:52 AM EST
[2018-12-21] MEDS: Aspirin 300 MG Supp RECTAL SCH (10:08)
[2018-12-21 10:40] LABS: Chol/HDL Ratio 2.58 Ratio; HDL Cholesterol 72.7 mg/dL (40.0-60.0)
[2018-12-21 11:34] VITALS: BP 169/82
--- NOTE | 2018-12-21 11:50 | P.PNPAL ---
Reason for Visit Reason for visit: a. To assist with evaluation and management of symptoms including: Altered mental status, weakness, dysphasia b. To assist medical decision maker(s) with: better understanding of current medical conditions; weighing benefits/burdens of medical treatment options; making medical treatment decisions. Subjective Subjective/Interval History: This is an 88-year-old female with a past medical history of hypertension hyperlipidemia, mild dementia, osteoarthritis and vitamin D deficiency who was found altered at [facility] where she resides. She was last seen at her normal baseline of alert and conversant in the early afternoon but when staff awakened her in the morning they found her altered with right-sided weakness. She was nonverbal, not responding to voice but is squeezing her granddaughters hand with her left hand. She withdraws from painful stimuli but is unable to follow commands. The patient had requested not to be resuscitated and to be made a DO NOT RESUSCITATE status yesterday, however it had not been signed by the physician yet. Patient seen today for follow-up to evaluate symptom management AMS, weakness, dysphasia and assist with goals of medical treatment. Patient remains obtunded, altered, not responding to family. Opened her eyes once and had left preferential gaze but otherwise no response. Repeat head CT without contrast today shows evolving large left MCA territory infarct with stable trace hemorrhage. No intercurrent hemorrhage or herniation. She has been febrile overnight with T-max 101.9 and remains a mildly hyperthermic this morning with temperature of 99.9. Speech therapy evaluation yesterday showed severe dysphasia, unable to follow gross oral commands, open mouth to spoon or straw. She remains n.p.o. status. She is globally weak with new onset right arm weakness. She demonstrates no motor control of the right arm but does resist movement. . Family/Friend Interactions: I was contacted by the daughter, Cindi, requesting information regarding hospice. Evaluated patient and discussed hospice care with family. Reviewed benefits and burdens of different treatment options. Provided addresses of [facility]s for family to visit to assist them in making their decision. Hospice consultation entered and called to admissions. Family was visited by Angel Hernadez, hospice volunteer and consents were signed. Pending family decision regarding which care center they. . Advance Directives Health Care Surrogate Name and Number: cindi Grimes- [phone] and Cortney Cope- [phone] Objective Vital Signs: Vital Signs 12/20/18 12:35 12/20/18 15:46 12/20/18 16:00 Temperature 101.7 F H 101.5 F H Pulse Rate 100 H 95 H Respiratory Rate 18 16 Blood Pressure 162/83 H 195/88 H Pulse Oximetry 99 12/20/18 18:46 12/20/18 19:50 12/20/18 20:00 Temperature 101.9 F H 101.7 F H Pulse Rate 88 Respiratory Rate 20 Blood Pressure 161/80 H Pulse Oximetry 100 99 12/20/18 23:28 12/21/18 00:00 12/21/18 04:00 Temperature 101.2 F H 100.8 F H Pulse Rate 76 66 Respiratory Rate 16 16 Blood Pressure 169/77 H 169/74 H Pulse Oximetry 99 99 12/21/18 04:55 12/21/18 08:00 Temperature 99.2 F 99.9 F H Pulse Rate 69 Respiratory Rate 16 Blood Pressure 169/66 H Pulse Oximetry 99 Intake & Output 12/20/18 12/21/18 12/21/18 18:59 06:59 18:59 Intake Total 465 / 465 665 / 665 Output Total 100 / 100 500 / 500 Balance 365 / 365 165 / 165 Weight 207 lb 14.334 oz Intake: IV 465 / 465 665 / 665 NS Inj 1,000 ML @ 70 mls/hr IV. 400 / 400 600 / 600 CONT .[id number] [facility] Rx#:[id number] Ofirmev Inj 650 mg In 65 ml @ 65 / 65 65 / 65 400 mls/hr IV.SIG ONCE ONE Rx#: [id number] Output: Urine 500 / 500 Urine Amount (Catheter) 100 / 100 Female External 100 / 100 Other: # Voids 3 # Incontinent Voids 1 Weight On Admission 207 lb 14.334 oz Physical Exam: CONSTITUTIONAL/GENERAL: This is an adequately nourished patient, in no acute distress. TUBES/LINES/DRAINS: PIV NECK: Trachea midline. Supple, nontender. No palpable thyroid enlargement or nodularity. CARDIOVASCULAR: Regular rate and rhythm with 2/6 systolic ejection murmur, no gallops, or rubs. No JVD. Peripheral pulses symmetric. RESPIRATORY/CHEST: Symmetric, unlabored respirations. Clear to auscultation. Breath sounds equal bilaterally. No wheezes, rales, or rhonchi. GASTROINTESTINAL: Abdomen soft, non-tender, nondistended. No hepato-splenomegaly , or palpable masses. No guarding. Bowel sounds present. GENITOURINARY: Without palpable bladder distension. MUSCULOSKELETAL: Extremities without clubbing, cyanosis, or edema. Spontaneously moving left arm and resists movement with the right arm. Spontaneous movement of both lower extremities seen. NEUROLOGICAL: Unresponsive, moaning, not following commands. PSYCHIATRIC: Mildly agitated intermittently, not communicating. . Diagnostic Tests Laboratory: Laboratory Results - last 72 hr 12/20/18 12/20/18 12/20/18 08:55 08:55 08:55 WBC 11.1 H RBC 4.36 Hgb 12.6 POC Hgb (Calc) 13.9 Hct 38.8 POC Hct 41.0 MCV 88.9 MCH 29.0 MCHC 32.6 RDW 15.1 Plt Count 213 MPV 9.5 Neut % (Auto) 80.7 H Lymph % (Auto) 14.5 [place] % (Auto) 4.2 Eos % (Auto) 0.0 Baso % (Auto) 0.6 Neut # (Auto) 9.0 H Lymph # (Auto) 1.6 [place] # (Auto) 0.5 Eos # (Auto) 0.0 Baso # (Auto) 0.1 WBC Differential . Differential Comment Auto diff final PT INR APTT Fibrinogen POC Sodium 141 POC Potassium 4.5 POC Chloride 103 POC BUN 23 H POC Creatinine 1.1 POC Glucose 142 H Total Creatine Kinase 274 H CK-MB (CK-2) 3.5 CK-MB (CK-2) % 1.3 Troponin I 0.03 Triglycerides Cholesterol LDL Cholesterol, Calc HDL Cholesterol Cholesterol/HDL Ratio Vitamin B12 TSH Urine Color Urine Clarity Urine pH Ur Specific [place] Urine Protein Urine Glucose (UA) Urine Ketones Urine Occult Blood Urine Nitrate Urine Bilirubin Urine Urobilinogen Ur Leukocyte Esterase Urine RBC Urine WBC Ur Squamous Epith Cells Urine Bacteria Urine Mucus Micro UA Comment Ur Microscopic Review Urine Culture Comments Urine Opiates Screen Ur Barbiturates Screen Ur Amphetamines Screen U Benzodiazepines Scrn Urine Cocaine Screen U Cannabinoids Screen Blood Type O Positive Antibody Screen Negative 12/20/18 12/20/18 12/20/18 08:55 09:48 09:48 WBC RBC Hgb POC Hgb (Calc) Hct POC Hct MCV MCH MCHC RDW Plt Count MPV Neut % (Auto) Lymph % (Auto) [place] % (Auto) Eos % (Auto) Baso % (Auto) Neut # (Auto) Lymph # (Auto) [place] # (Auto) Eos # (Auto) Baso # (Auto) WBC Differential Differential Comment PT 10.6 INR 1.0 APTT 25.7 Fibrinogen 303 POC Sodium POC Potassium POC Chloride POC BUN POC Creatinine POC Glucose Total Creatine Kinase CK-MB (CK-2) CK-MB (CK-2) % Troponin I Triglycerides Cholesterol LDL Cholesterol, Calc HDL Cholesterol Cholesterol/HDL Ratio Vitamin B12 392 TSH 0.943 Urine Color Urine Clarity Urine pH Ur Specific [place] Urine Protein Urine Glucose (UA) Urine Ketones Urine Occult Blood Urine Nitrate Urine Bilirubin Urine Urobilinogen Ur Leukocyte Esterase Urine RBC Urine WBC Ur Squamous Epith Cells Urine Bacteria Urine Mucus Micro UA Comment Ur Microscopic Review Urine Culture Comments Urine Opiates Screen Neg Ur Barbiturates Screen Neg Ur Amphetamines Screen Neg U Benzodiazepines Scrn Neg Urine Cocaine Screen Neg U Cannabinoids Screen Neg Blood Type Antibody Screen 12/20/18 12/21/18 09:48 07:29 WBC RBC Hgb POC Hgb (Calc) Hct POC Hct MCV MCH MCHC RDW Plt Count MPV Neut % (Auto) Lymph % (Auto) [place] % (Auto) Eos % (Auto) Baso % (Auto) Neut # (Auto) Lymph # (Auto) [place] # (Auto) Eos # (Auto) Baso # (Auto) WBC Differential Differential Comment PT INR APTT Fibrinogen POC Sodium POC Potassium POC Chloride POC BUN POC Creatinine POC Glucose Total Creatine Kinase CK-MB (CK-2) CK-MB (CK-2) % Troponin I Triglycerides 78 Cholesterol 188 LDL Cholesterol, Calc 100 H HDL Cholesterol 72.7 H Cholesterol/HDL Ratio 2.58 Vitamin B12 TSH Urine Color Straw Urine Clarity Hazy H Urine pH 8.0 Ur Specific [place] 1.010 Urine Protein 100 H Urine Glucose (UA) Negative Urine Ketones Negative Urine Occult Blood Moderate H Urine Nitrate Negative Urine Bilirubin Negative Urine Urobilinogen Less than 2 Ur Leukocyte Esterase Negative Urine RBC 10 H Urine WBC 3 Ur Squamous Epith Cells 5 Urine Bacteria Rare H Urine Mucus Few H Micro UA Comment Cath-culture not ind Ur Microscopic Review Not Reportable Urine Culture Comments Cath-cult not ind Urine Opiates Screen Ur Barbiturates Screen Ur Amphetamines Screen U Benzodiazepines Scrn Urine Cocaine Screen U Cannabinoids Screen Blood Type Antibody Screen Result Diagrams: 12/20/18 08:55 Imaging: ITS Impressions Chest X-Ray 12/20/18 00:00 CONCLUSION: 1. Elevation right hemidiaphragm. 2. No infiltrate. Neck MRA 12/20/18 00:00 CONCLUSION: 1. Negative for hemodynamically significant stenosis. Examination is not adequate to exclude a source of emboli from the left carotid. Percent stenosis is calculated using the diameter of the stenotic region over the diameter of the normal distal internal carotid artery Head MRI 12/20/18 09:16 CONCLUSION: 1. MRI consistent with acute ischemic event involving a large segment of the left middle cerebral artery territory extending from the orbital frontal region to the high left parotid region with minimal hemorrhage. 2. There is currently minimal mass effect associated with this 3. Right hemisphere is unremarkable Head MRA 12/20/18 09:17 CONCLUSION: 1. 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 Evolving large left MCA territory infarct with stable trace hemorrhage. 2. No intercurrent hemorrhage or herniation. Assessment and Plan Pertinent Non-Medical Issues: Psychosocial: She was born in [place] but has spent much of her life in [place]. She briefly moved to [place] for about a year and a half but then returned back to [place] where most of her family is local. She has 4 daughters and 4 sons. Her daughter Cindi healthcare surrogate. Spiritual: Nondenominational sarita. Legal: Healthcare surrogate on the chart. Ethical issues impacting care: None noted. . Important Contacts: Daughter: Cindi Grimes Daughter: Cortney Cope Son: Bruno Miller . Prognosis: Her prognosis is guarded. This was a very large stroke and she will likely have significant residual disabilities per Dr. Garcia. She is of advanced age with multiple comorbidities and had recently requested her own DNR. Family is complying with her request and has made her a DO NOT RESUSCITATE status. She would be hospice appropriate if goals were consistent. Code Status: No Code DNR Plan: PLAN: Legal decision maker: Patient is not capacitated for decision-making and it is unlikely that she will ever regain capacity. She has completed healthcare surrogate naming her daughter Cindi Grimes her primary healthcare surrogate and her daughter Cortney Cope her second surrogate. Goals: Comfort oriented. CODE STATUS: DO NOT RESUSCITATE SYMPTOMS: * AMS/confusion: She had a large MCA stroke and at this time is nonverbal, unable to follow commands. Family would like to transition her to comfort care with hospice. Consents signed, pending decision on care center placement. * Weakness: At baseline she ambulates with a walker and earlier today she was displaying right arm flaccidity, however at this evaluation she is providing weak, gross resistance to passive movement of her right arm. She was unable to participate with speech therapy and remains n.p.o. Palliative care will continue to follow the patient during hospital course as condition evolves, to assist patient/decision-maker with understanding of their medical conditions, weighing benefits/burdens of treatment options, for clarification of goals of treatment. Additionally will assist with any symptoms of palliative concern. . Attestation Attestation: To help prompt me to consider important information that might be impacting today's encounter and assessment, information from prior notes written by myself or my colleagues may have been "brought forward" into today's note. My signature on this note, however, is an attestation that I personally performed the exam, history, and/or decision-making noted today, and, unless otherwise indicated, the interactions with patient, family, and staff as well as the review of records all occurred today. I also attest that the listed assessment and stated plan reflect my best clinical judgment today based on the combination of historical information, prior notes, and today's exam/ interactions. When time spent is documented, it refers only to time spent today by the signer, or if indicated, combined time spent today by collaborating physician/nurse practitioner. .
[2018-12-21 11:58] VITALS: PULSE 75; TEMP 100.4
--- NOTE | 2018-12-21 12:11 | P.PNFP ---
Subjective Interval history: Patient is unable to respond to my questions. She can open her eyes but her gaze is deviated to the left. Her family is at bedside, and they report that she is mostly the same. If anything, her face looks a little bit more twisted. They report that they had a conversation with hospice this morning, and all they have to do now is pick a hospice facility for her to go to. <Wayne Levin - 12/21/18 14:39> Results - Labs Result diagrams: 12/20/18 08:55 <Wayne Delacruz - 12/21/18 17:12> Abnormal lab results 12/21/18 Range/Units 07:29 LDL Cholesterol, Calc 100 H (0-99) mg/dL HDL Cholesterol 72.7 H (40.0-60.0) mg/dL <Wayne Delacruz - 12/21/18 17:12> Abnormal lab results 12/21/18 Range/Units 07:29 LDL Cholesterol, Calc 100 H (0-99) mg/dL HDL Cholesterol 72.7 H (40.0-60.0) mg/dL <Wayne Levin - 12/21/18 12:11> - Imaging Impressions Chest X-Ray 12/20/18 00:00 CONCLUSION: 1. Elevation right hemidiaphragm. 2. No infiltrate. Head CT 12/21/18 05:00 CONCLUSION: 1. Evolving large left MCA territory infarct with stable trace hemorrhage. 2. No intercurrent hemorrhage or herniation. <Wayne Delacruz - 12/21/18 17:12> Impressions Chest X-Ray 12/20/18 00:00 CONCLUSION: 1. Elevation right hemidiaphragm. 2. No infiltrate. Neck MRA 12/20/18 00:00 CONCLUSION: 1. Negative for hemodynamically significant stenosis. Examination is not adequate to exclude a source of emboli from the left carotid. Percent stenosis is calculated using the diameter of the stenotic region over the diameter of the normal distal internal carotid artery Head MRI 12/20/18 09:16 CONCLUSION: 1. MRI consistent with acute ischemic event involving a large segment of the left middle cerebral artery territory extending from the orbital frontal region to the high left parotid region with minimal hemorrhage. 2. There is currently minimal mass effect associated with this 3. Right hemisphere is unremarkable Head MRA 12/20/18 09:17 CONCLUSION: 1. 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 Evolving large left MCA territory infarct with stable trace hemorrhage. 2. No intercurrent hemorrhage or herniation. <Wayne Levin - 12/21/18 12:11> Physical Exam Vital signs: Vital Signs 12/20/18 18:46 12/20/18 19:50 12/20/18 20:00 Temperature 101.9 F H 101.7 F H Pulse Rate 88 Respiratory Rate 20 Blood Pressure 161/80 H Pulse Oximetry 100 99 12/20/18 23:28 12/21/18 00:00 12/21/18 04:00 Temperature 101.2 F H 100.8 F H Pulse Rate 76 66 Respiratory Rate 16 16 Blood Pressure 169/77 H 169/74 H Pulse Oximetry 99 99 12/21/18 04:55 12/21/18 08:00 12/21/18 11:32 Temperature 99.2 F 99.9 F H Pulse Rate 69 Respiratory Rate 16 Blood Pressure 169/66 H 169/82 H Pulse Oximetry 99 12/21/18 11:57 Temperature 100.4 F H Pulse Rate 75 Respiratory Rate 16 Blood Pressure 169/82 H Pulse Oximetry 99 Intake & Output 12/20/18 12/21/18 12/21/18 18:59 06:59 18:59 Intake Total 465 / 465 665 / 665 Output Total 100 / 100 500 / 500 Balance 365 / 365 165 / 165 Weight 94.3 kg Intake: IV 465 / 465 665 / 665 NS Inj 1,000 ML @ 70 mls/hr IV. 400 / 400 600 / 600 CONT .[id number] [facility] Rx#:[id number] Ofirmev Inj 650 mg In 65 ml @ 65 / 65 65 / 400 mls/hr IV.SIG ONCE ONE Rx#: [id number] Output: Urine 500 / 500 Urine Amount (Catheter) 100 / 100 Female External 100 / 100 Other: # Voids 3 # Incontinent Voids 1 Weight On Admission 94.3 kg <Wayne Delacruz Faustino - 12/21/18 17:12> Vital Signs 12/20/18 12:35 12/20/18 15:46 12/20/18 16:00 Temperature 101.7 F H 101.5 F H Pulse Rate 100 H 95 H Respiratory Rate 18 16 Blood Pressure 162/83 H 195/88 H Pulse Oximetry 99 12/20/18 18:46 12/20/18 19:50 12/20/18 20:00 Temperature 101.9 F H 101.7 F H Pulse Rate 88 Respiratory Rate 20 Blood Pressure 161/80 H Pulse Oximetry 100 99 12/20/18 23:28 12/21/18 00:00 12/21/18 04:00 Temperature 101.2 F H 100.8 F H Pulse Rate 76 66 Respiratory Rate 16 16 Blood Pressure 169/77 H 169/74 H Pulse Oximetry 99 99 12/21/18 04:55 12/21/18 08:00 12/21/18 11:32 Temperature 99.2 F 99.9 F H Pulse Rate 69 Respiratory Rate 16 Blood Pressure 169/66 H 169/82 H Pulse Oximetry 99 12/21/18 11:57 Temperature 100.4 F H Pulse Rate 75 Respiratory Rate 16 Blood Pressure 169/82 H Pulse Oximetry 99 Intake & Output 12/20/18 12/21/18 12/21/18 18:59 06:59 18:59 Intake Total 465 / 465 665 / 665 Output Total 100 / 100 500 / 500 Balance 365 / 365 165 / 165 Weight 94.3 kg Intake: IV 465 / 465 665 / 665 NS Inj 1,000 ML @ 70 mls/hr IV. 400 / 400 600 / 600 CONT .[id number] [facility] Rx#:[id number] Ofirmev Inj 650 mg In 65 ml @ 65 / 65 65 / 65 400 mls/hr IV.SIG ONCE ONE Rx#: [id number] Output: Urine 500 / 500 Urine Amount (Catheter) 100 / 100 Female External 100 / 100 Other: # Voids 3 # Incontinent Voids 1 Weight On Admission 94.3 kg <Wayne Levin - 12/21/18 12:11> Narrative: GENERAL: 88-year-old, well nourished, well developed female laying down in bed, unresponsive to voice. In response to shaking, She can open her eyes but her gaze is deviated to the left. In no acute distress. SKIN: Warm and dry. HEAD: Atraumatic. Normocephalic. EYES: EMOI. PERRLA. No scleral icterus. No injection or drainage. ENT: No nasal bleeding or discharge. Mucous membranes pink and moist. Airway patent. Poor dentition. CARDIOVASCULAR: Regular rate and rhythm. No murmur. RESPIRATORY: No accessory muscle use. Clear to auscultation with equal breath sounds. No crackles, wheeze, rales or rhonchi. GASTROINTESTINAL: Abdomen soft, non-tender, nondistended. Hepatic and splenic margins not palpable. MUSCULOSKELETAL: Extremities without clubbing, cyanosis, or edema. No obvious deformities. Unable to determine calf tenderness due to patient's mental status. Flaccid arm and leg on the right. NEUROLOGICAL: Unresponsive to voice. Mild withdrawal to sternal rub. Kept eyes closed throughout the entire exam. Intermittently clearing her throat throughout exam. Unable to follow commands, including opening her eyes, or releasing fingers, but she can squeeze fingers on the left. Moves left foot spontaneously. Facial droop on right. <Wayne Levin 12/21/18 14:39> - Urinary Catheter Management Female External Cath placed during this visit: no <Wayne Delacruz 12/21/18 17:12> no <Wayne Levin 12/21/18 14:39> Assessment and Plan - Assessment (1) Stroke due to embolism of left middle cerebral artery Code(s): I63.412 - Cerebral infarction due to embolism of left middle cerebral artery Status: Acute (2) Altered mental status Code(s): R41.82 - Altered mental status, unspecified Status: Acute (3) Right sided weakness Code(s): R53.1 - Weakness Status: Acute (4) HTN (hypertension) Code(s): I10 - Essential (primary) hypertension Status: Acute (5) Dementia Code(s): F03.90 - Unspecified dementia without behavioral disturbance Status: Acute (6) Nutrition, metabolism, and development symptoms Code(s): R63.8 - Other symptoms and signs concerning food and fluid intake Status: Acute (7) DVT prophylaxis Status: Acute <Wayne Delacruz - 12/21/18 17:12> (1) Stroke due to embolism of left middle cerebral artery Code(s): I63.412 - Cerebral infarction due to embolism of left middle cerebral artery Status: Acute (2) Altered mental status Code(s): R41.82 - Altered mental status, unspecified Status: Acute (3) Right sided weakness Code(s): R53.1 - Weakness Status: Acute (4) HTN (hypertension) Code(s): I10 - Essential (primary) hypertension Status: Acute (5) Dementia Code(s): F03.90 - Unspecified dementia without behavioral disturbance Status: Acute (6) Nutrition, metabolism, and development symptoms Code(s): R63.8 - Other symptoms and signs concerning food and fluid intake Status: Acute (7) DVT prophylaxis Status: Acute <Wayne Levin A - 12/21/18 14:32> - Assessment and Plan Subacute, evolving CVA of left MCA Altered mental status, right-sided weakness Patient unresponsive and unable to follow commands, change from baseline. -CBC, CMP, PT/INR, UA WNL. UDS negative. -CT head showed "acute to subacute area of infarction involving the left middle cerebral artery territory with suspected small punctate areas of hemorrhage." -MRI/MRA brain showed: 1. MRI consistent with acute ischemic event involving a large segment of the left middle cerebral artery territory extending from the orbital frontal region to the high left parotid region with minimal hemorrhage. 2. There is currently minimal mass effect associated with this 3. Right hemisphere is unremarkable 1. Atherosclerotic vascular disease as above with absent anterior branches M2 left middle cerebral artery -Keep on bedrest -Fall precautions -HOB flat for 12 hours -Neurochecks every 4 while patient is awake for 24 hours. Resident team and neurologist to be notified for any neurologic changes. -Allow for permissive hypertension with systolic blood pressure up to 200 and diastolic blood pressure up to 100. -Speech therapy consulted for swallow evaluation, keep n.p.o. for now and hold p.o. medications until cleared by speech. -LDSS protocol Per daughter, to hold off on further blood work including lipid panel, A1c, LFTs , and echocardiogram until MRI/MRA of brain completed and she has discussed this workup with palliative care. -Palliative care consulted: * AMS/confusion: She had a large MCA stroke and at this time is nonverbal, unable to follow commands. Family would like to transition her to comfort care with hospice. Consents signed, pending decision on care center placement. * Weakness: At baseline she ambulates with a walker and earlier today she was displaying right arm flaccidity, however at this evaluation she is providing weak, gross resistance to passive movement of her right arm. She was unable to participate with speech therapy and remains n.p.o. Neurology consult appreciated: large left mca cva on mri dw daughter and recommended comfort care prognosis very poor Plan: -discharge to hospice Hypertension On amlodipine, carvedilol, and furosemide at home. Did not receive medications today. -Will allow for permissive hypertension. Nurses contact resident team if blood pressure greater than 200/100 Dementia On memantine at home -Hold p.o. medications Glaucoma -Receives atropine eyedrop and dorzolamide eyedrops at home Hypercholesterolemia On atorvastatin at home -Hold p.o. medications Neuropathy On gabapentin at home -Hold p.o. medications Chronic back pain On tramadol at home -Hold p.o. medications Constipation On Colace at home -Hold p.o. medications FEN: Fluids: NS at 70 mls/hour Electrolytes: No electrolyte abnormalities noted. Continue to monitor and replete as needed. Diet: N.p.o. until official swallow evaluation completed DVT prophylaxis -Hold anticoagulation Patient's daughter would like to discuss care goals with palliative care team regarding treatment options and possibility of comfort care. Patient had signed DNR paperwork yesterday while in the [facility], however, it lacks a physician signature. Daughter is the POA and surrogate medical decision maker. juan luis Sheriff and Dr. Delacruz <Wayne Levin - 12/21/18 14:39> - Attending Attestation neuro exam essentially same today, family discussing with hospice, looking at facilities, likely d/c today there for comfort care. discussed with all family present and all seem to be in accord. <Wayne Delacruz - 12/21/18 17:12>
== END 2018-12-21 14:38 | disposition hospice, inpatient (51) | DRG 65 ==
LOC: NEPD 08:50 → NEDA 11:56 → INTOOBSV 11:56 → NEDA 13:09 → NEPHCDU 14:00
PROVIDERS: ADMIT Family Medicine; ATTEND Family Medicine
CPT/HCPCS: 70450; 70544; 70548; 70553; 71010; 71045; 80061; 80307; 81001; 82435; 82550; 82552; 82565; 82607; 82947; 84132; 84295; 84443; 84484; 84520; 85025; 85384; 85610; 85730; 86850; 86900; 86901; 90760; 90761; 92610; 93005; 93306; 96360; 96361; 99291; A9585; G0195; G8996; G8997; G8998; J0131; J7030